=== PATIENT | male | born 1950 | race Caucasian/White ===

== ENCOUNTER → 2017-07-08 10:12 | Outpatient (CLI) | payer MEDICARE, SELFPAY ==
[2017-07-08 13:11] LABS: T4 Free Direct 0.98 ng/dL (0.76-1.46); Thyroid Stim Hormone (TSH) 6.73 uIU/mL (0.358-3.74)
== END ==
PROVIDERS: Family Provider Family Medicine; PCP Family Medicine; Visit Provider Family Medicine
DX: E03.9 Hypothyroidism, unspecified (principal); E78.5 Hyperlipidemia, unspecified
CPT/HCPCS: 36415; 84439; 84443

== ENCOUNTER → 2018-03-28 08:34 | Outpatient (CLI) | payer MEDICARE, SELFPAY ==
[2018-03-28 13:07] LABS: Cholesterol 199 mg/dL (200); Glucose 96 mg/dL (74-106); High Density Lipoprotein 42 mg/dL; PSA,Total - Annual Screen 2.19 ng/mL (0.00-4.00); T4 Free Direct 0.99 ng/dL (0.76-1.46); Thyroid Stim Hormone (TSH) 3.53 uIU/mL (0.358-3.74); Triglycerides 117 mg/dL; Very Low Density Lipoprotein 23 mg/dL (5-40)
== END ==
PROVIDERS: Family Provider Family Medicine; PCP Family Medicine; Visit Provider Family Medicine
DX: E03.9 Hypothyroidism, unspecified (principal); E78.5 Hyperlipidemia, unspecified; Z12.5 Encounter for screening for malignant neoplasm of prostate
CPT/HCPCS: 36415; 80061; 82947; 84153; 84439; 84443; G0103

== ENCOUNTER → 2018-05-05 10:02 | Outpatient (CLI) | payer MEDICARE, SELFPAY ==
[2018-05-05 12:35] LABS: T4 Free Direct 1.01 ng/dL (0.76-1.46); Thyroid Stim Hormone (TSH) 3.53 uIU/mL (0.358-3.74)
== END ==
PROVIDERS: Family Provider Family Medicine; PCP Family Medicine; Visit Provider Family Medicine
DX: E03.9 Hypothyroidism, unspecified (principal)
CPT/HCPCS: 36415; 84439; 84443

== ENCOUNTER 2019-01-23 13:40 | Emergency (ER) | payer MEDICARE, SELFPAY ==
[2019-01-23 13:41] VITALS: BP 149/74; PULSE 89; RESP 16; TEMP 36.5; O2SAT 97; BMI 26.5
[2019-01-23] MEDS: Diphth,Pertuss(Acell),Tet Vac 0.5 ML Vial IM (14:04)
--- NOTE | 2019-01-23 14:05 | RAD_ITS ---
STUDY: X-RAY - LEFT HAND REASON FOR EXAM: Male, 68 years old. Laceration following injury of the index finger. TECHNIQUE: 3 view(s) of the hand. COMPARISON: None. FINDINGS: Normal radiocarpal articulation. Normal distal radioulnar joint. Normal visualized carpal bones. Normal carpal articulations Normal carpometacarpal articulation of the thumb. Normal second through fifth carpometacarpal joints. Normal metacarpi. Normal metacarpophalangeal joint of the thumb. Normal interphalangeal joint of the thumb. Normal proximal and distal phalanges of the thumb. Normal metacarpophalangeal joints of the second through fifth fingers. Normal proximal and distal interphalangeal joints of the second through fifth fingers. Normal phalanges of the second through fifth fingers. Soft tissue laceration overlying the index finger. No bony abnormality is seen. No radiopaque foreign body. RAD/Hand Min 3 Views IMPRESSION: Soft tissue laceration overlying the index finger. Electronically Signed: Patrick Montanez, at 14:41 EDT , Service support ,
--- NOTE | 2019-01-23 15:27 | ED.DCSUM_ITS ---
- ER Visit Summary Date of Service: 01/23/19 Chief Complaint: Laceration History of Present Illness: The patient is a 68 M with a laceration to his left index finger. He is right-hand dominant. This occurred when he was carrying a flowerpot. He fell and cut the finger. He hyperextended the finger and noticed a deformity at his PIP joint. Physical Examination: 3 cm laceration over his left dorsal PIP joint of the index finger. There appears to be a extensor tendon injury and I am concerned for joint disruption Test Results: X-rays negative for fracture or air. Emergency Department Course and Treatment: Tetanus updated. Wound was anesthetized with a digital block. Wound was irrigated with saline and [place]. Closed with simple interrupted sutures. Patient was discussed with Dr. Brooks and will follow-up in the office tomorrow at 8 AM. He was told to be n.p.o. after midnight. He was treated with doxycycline and Percocet. Treatment Plan: As above Disposition: Discharge Impression: 1. Left index finger laceration 3 cm 2. Extensor tendon injury This note was generated with [employer] dictation software. It may contain incorrect words, spelling, and punctuation that were not noted in review of the chart prior to signing ED Disposition - Plan for ED Patient: Referrals: Justino Schultz MD [Primary Care Provider] -
--- NOTE | 2019-01-23 15:30 | ED.DEP ---
ED Disposition - Plan for ED Patient: Instructions: LACERATION, Tendon Prescriptions: Doxycycline 100 mg PO BID #20 cap Prescription Printed Oxycodone HCl/Acetaminophen [Percocet 5/325] 1 tab PO Q6H PRN PRN 3 Days #12 tab PRN Reason: Pain Prescription Printed Referrals: José Luis Brooks MD [STAFF PHYSICIAN] - Additional Instructions: Go to Dr. Workman office tomorrow at 8am (Tue) Nothing to eat or drink after midnight
[2019-01-23 15:47] VITALS: BP 131/77; PULSE 89; RESP 15; O2SAT 98
--- NOTE | 2019-01-23 15:47 | ED.RN ---
PT GIVEN WRITTEN AND VERBAL DISCHARGE INSTRUCTIONS AND HOME GOING INSTRUCTIONS. PT EDUCATED NOT TO DRIVE WHEN TAKING NARCOTIC MEDICATION. PT AMBULATES OUT OF DEPT WITH .
== END 2019-01-23 15:48 | disposition home or self-care (01) ==
LOC: ED 14:17
PROVIDERS: Emergency Provider Emergency Medicine; Family Provider Family Medicine; PCP Family Medicine
DX: S61.211A Laceration without foreign body of left index finger without damage to nail, initial encounter (principal); S66.301A Unspecified injury of extensor muscle, fascia and tendon of left index finger at wrist and hand level, initial encounter; W19.XXXA Unspecified fall, initial encounter; W45.8XXA Other foreign body or object entering through skin, initial encounter; Y93.89 Activity, other specified; E03.9 Hypothyroidism, unspecified; Z79.899 Other long term (current) drug therapy
CPT/HCPCS: 12002; 73130; 90471; 90715; 99285

== ENCOUNTER 2019-01-24 10:30 | Day surgery (SDC) | payer MEDICARE, SELFPAY ==
[2019-01-23 13:41] VITALS: BMI 26.5
[2019-01-24 08:23] VITALS: BMI 26.5
[2019-01-24 10:53] VITALS: BP 133/75; PULSE 73; RESP 16; TEMP 36.9; O2SAT 100; BMI 28.3
[2019-01-24] MEDS: Lactated Ringers 1,000 ML 75 ML IV (11:07)
--- NOTE | 2019-01-24 12:53 | HP.PCM_ITS ---
History and Physical Date of Admission: 01/24/19 Allergies No Known Allergies Allergy (Verified 01/24/19 09:15) Medications Aspirin [Aspir 81] 81 mg PO DAILY 01/23/19 [History Confirmed 01/24/19] Doxycycline 100 mg PO BID #20 cap 01/23/19 [Rx Confirmed 01/24/19] Levothyroxine Sodium 88 mcg PO DAILY 01/23/19 [History Confirmed 01/24/19] Oxycodone HCl/Acetaminophen [Percocet 5/325] 1 tab PO Q6H PRN PRN 3 Days #12 tab 01/23/19 [Rx Confirmed 01/24/19] PFSH Medical History Hearing problem of both ears (Acute) Neuropathy (Acute) Seasonal allergies (Acute) Thyroid disease (Acute) Family History Father Angina at rest Heart disease Mother Hypertension Thyroid disorder Grandmother Diabetes Social History (Updated 01/24/19 @ 10:26 by José Luis Brooks MD) Smoking Status: Never smoker alcohol intake: never substance use type: does not use additional social history: DOES USE BABY ASPIRIN DOES NOT USE IBUPROFEN HPI evaluation extensor tendon injury left index finger at PIP joint (zone 3): Details: HISTORY OF PRESENT ILLNESS 68 year old man presents with an injury to his left index finger on the dorsum over the PIP joint when he was carrying a ceramic flower pot and fell and sustained this laceration. This accident occurred yesterday 01/23/19. Patient is right hand dominant. Bleeding was controlled at the scene with compression. He went to the ED. X-ray revealed no fracture. The wound was cleansed and suture repaired. There was a question of joint involvement at the time of the suture repair. Patient states the finger was initially flexed at the PIP joint when he went to the ED. After the suture repair the finger was splinted. He was discharged on Doxycycline and Percocet. Patient denies fever. He presents today for further evaluation and treatment. REVIEW OF SYSTEMS General - Denies fever, fatigue, and weight loss. Eyes - Denies cataracts and glaucoma. ENT - Denies nasal congestion and sore throat. Endocrine - Denies excessive thirst and urination. Has thyroid disease. Skin - Denies suspicious lesions and skin cancer. Musculoskeletal - Denies joint pain, joint stiffness, weakness of muscles and joints, back pain, and arthritis. Has laceration left index finger on dorsum over PIP joint (zone 3). Neuro - Denies headaches. Cardiovascular - Denies chest pain, fatigue, and shortness of breath with exertion. Psych - Denies anxiety and depression. Respiratory - Denies chronic cough and shortness of breath. Gastrointestinal - Denies nausea, vomiting, diarrhea, and constipation. Hematologic - Denies abnormal bruising and bleeding. Genitourinary - Denies hematuria and urinary frequency. PHYSICAL EXAMINATION General - Alert and Oriented. HEENT - PERRL. EOMI. Throat is clear. Neck - Supple and nontender. No cervical adenopathy. Lungs - Clear to auscultation. Heart - Regular rate and rhythm. Abdomen - Soft and nondistended. Extremities - FROM right upper extremity. Patient is right hand dominant. No axillary adenopathy. Radial pulses are palpable. Fingers are warm with good capillary refill. On the dorsum left index finger over the PIP joint is a L- shaped laceration with horizontal component over the PIP joint and the longitudinal component extending proximally and radially. Measures 3 cm. There is difficulty in extending the left index finger at the PIP joint. Mild swelling seen. No sensory deficits noted. Neuro - CN II-XII grossly intact. Psych - Normal mood and affect. ASSESSMENT 1. 3 cm L-shaped laceration dorsum left index finger over the PIP joint (zone 3) with extensor tendon injury. 2. Possible PIP joint involvement. 3. Early Boutonniere deformity left index finger. PLAN X-ray reviewed. No fracture seen. No foreign body seen. Patient has a laceration over PIP joint left index finger (zone 3) with extensor tendon injury (Boutonniere). Recommend operative exploration of the injury and repair of the extensor tendon. There was a question of joint involvement in the ED. If so will irrigate and proceed with closure with an arthroplasty. May need exposure with extension of the laceration in a zig zag fashion in a proximal and distal direction. Surgery will be done under [place] [facility] anesthesia and tourniquet control on an outpatient basis. Will proceed with the surgery today to evaluate the joint. Postop will have a splint. Will set him up with OT for a silastic splint and after healing, proceed with range of motion exercises, strengthening, and edema management. Sutures will be removed in 2-3 weeks. Patient was informed of the risks and complications of the procedure including alternatives to surgery. These were discussed with the patient personally. Patient voices understanding and wishes to proceed. Some of the risks and complications were included in a form from the [employer]. Some of the risks and complications that were discussed included but were not inclusive of failure to diagnose including symptom relief, pain, infection, numbness, stiffness, loss of digit, RSD (CRPS), need for further surgery, contracture, and wound healing problems.
[2019-01-24] MEDS: Cefazolin 2 GM in 0.9% Normal Saline 100 ML IV (14:09)
[2019-01-24] MEDS: Mupirocin Ointment 22gm Tube 1 APPLIC (15:00)
[2019-01-24 15:50] VITALS: BP 133/75; BP 138/76; PULSE 80; RESP 16; TEMP 36.4; O2SAT 94
[2019-01-24 16:00] VITALS: BP 124/67; BP 133/75; PULSE 75; RESP 16; O2SAT 94
[2019-01-24 16:15] VITALS: BP 133/75; BP 134/82; PULSE 75; RESP 16; O2SAT 93
[2019-01-24 16:31] VITALS: BP 129/82; BP 133/75; PULSE 77; RESP 16; TEMP 36.8; O2SAT 96
--- NOTE | 2019-01-24 17:00 | DCINST_ITS ---
You will use the following diet at home:: No restrictions Discharge Activity: May Not Drive, May Shower - place plastic bag over left hand when showering. May shower in (days): 1 - wear plastic bag over left hand when showering. May resume sexual activity in: No Restrictions Weight Bearing Status: Weight bearing as tolerated Lifting Restrictions: no lifting with left hand. Call your doctor if your incision/area has: Continuous Slow Oozing, Sudden Increased Bleeding, Increased Pain/ Swelling, Increased Redness, Foul Smelling Discharge, Swelling at the incision site Call your doctor if you observe: Fever of 101 or Higher, Coldness, Increased Pain, Shortness of breath, Chest pain, Calf discomfort, Uncontrolled pain Change Dressing in (Days):: 7 - will change dressing in office. Cleanse incision/area with: - - wear plastic bag over left hand when showering. Additional Instructions: Patient has Doxycycline at home that he will continue postoperatively. Allergies/Adverse Reactions: Allergies No Known Allergies Allergy (Verified 01/24/19 10:41) Medications to take at Discharge Doxycycline 100 mg PO BID #20 cap 01/23/19 Levothyroxine Sodium 88 mcg PO DAILY 01/23/19 Oxycodone HCl/Acetaminophen [Percocet 5-325] 1 tab PO Q6H PRN PRN 3 Days #12 tab 01/23/19 HYDROmorphone tablet [Dilaudid] 2 mg PO Q4H PRN PRN 7 Days #40 tab 01/24/19 The following prescriptions were given: HYDROmorphone tablet [Dilaudid] 2 mg PO Q4H PRN PRN 7 Days #40 tab PRN Reason: Pain Prescription Printed Primary Care Physician: Justino Schultz MD [Primary Care Provider] - Test Results: Test results from this visit will be discussed in further detail at your follow- up appointment, if applicable. Please Follow Up With: José Luis Brooks MD When: one week. call [phone] for appt. Proposed Discharge Date: 01/24/19
[2019-01-24 17:38] VITALS: BP 133/75; BP 137/75; PULSE 86; RESP 16; TEMP 37; O2SAT 98
--- NOTE | 2019-01-24 18:05 | PCM.OPRPT ---
Report of Operation Date of Procedure: 01/24/19 Pre-Operative Diagnosis: 1. 3 cm L-shaped laceration dorsum left index finger over the PIP joint (zone 3) with extensor tendon injury. 2. Possible PIP joint involvement. 3. Early Boutonniere deformity left index finger. Post-Operative Diagnosis: 1. 3 cm L-shaped laceration dorsum left index finger over the PIP joint (zone 3) with extensor tendon injury. 2. Laceration PIP joint left index finger. 3. Early Boutonniere deformity left index finger. Surgery/Procedure Performed:: 1. Repair extensor tendon laceration dorsum left index finger at PIP joint (zone 3). 2. Arthroplasty PIP joint left index finger. Description of Surgical Findings:: 68 year old man presents with an injury to his left index finger on the dorsum over the PIP joint when he was carrying a ceramic flower pot and fell and sustained this laceration. This accident occurred yesterday 01/23/19. Patient is right hand dominant. Bleeding was controlled at the scene with compression. He went to the ED. X-ray revealed no fracture. The wound was cleansed and suture repaired. There was a question of joint involvement at the time of the suture repair. Patient states the finger was initially flexed at the PIP joint when he went to the ED. After the suture repair the finger was splinted. He was discharged on Doxycycline and Percocet. Patient denies fever. Patient was informed of the risks and complications of the procedure including alternatives to surgery. These were discussed with the patient personally. Patient voices understanding and wishes to proceed. Some of the risks and complications were included in a form from the [employer]. Some of the risks and complications that were discussed included but were not inclusive of failure to diagnose including symptom relief, pain, infection, numbness, stiffness, loss of digit, RSD (CRPS), need for further surgery, contracture, and wound healing problems. Total tourniquet time - 57 minutes. candy feeder: None Type of Anesthesia:: General Specimen's removed: Soft tissue left index finger to Microbiology. Drains: None. Estimated Blood Loss (mL): 5 ml. Description of Procedure: Patient was taken to OR in supine position and was placed under general anesthesia. The left hand was prepped and draped in the usual fashion. SCD's were placed for DVT prophylaxis. Perioperative antibiotics were given intravenously. Using xylocaine with epinephrine, a digital metacarpal block was infiltrated for postoperative pain relief. I elevated the left hand and wrapped an Esmarch bandage as the tourniquet was elevated to 250 mmHg. Under loupe magnification, I removed the sutures placed in the ED. The laceration went through the extensor tendon and the underlying joint capsule. The underlying joint and articular surface was exposed. The lateral bands appeared intact. I extended the laceration in a proximal and distal direction to get better exposure. The skin flaps were elevated at the level of the tendon. The flaps were retracted back with 5-0 Nylon suture. The wound and the joint was irrigated with saline. Some of the surrounding soft tissue was debrided and sent to Microbiology for culture. I then repaired the joint capsule with an arthroplasty using 3-0 Vicryl figure of eight interrupted sutures. I repaired the extensor tendon laceration with 4-0 Nylon figure of eight interrupted sutures. At the completion of the repair the finger was stable and straight. The wound was irrigated with saline. The tourniquet was released after 57 minutes. Hemostasis obtained with gentle pressure and elevation and electrocautery. The skin flaps were then approximated with 5-0 Nylon simple interrupted sutures and vertical mattress interrupted sutures. Antibiotic ointment was applied to the suture line followed by Xeroform gauze and 2x2 gauze and followed by a 2 inch Lindsay wrap. A volar plaster splint was then applied in a position of function (wrist slightly dorsiflexed, MP joints slightly flexed, and IP joints extended) followed by a compression bhupinder wrap. Patient tolerated the procedure well and was sent to PACU in satisfactory condition. Patient will be sent home on antibiotics and pain medication. Patient will followup in a week for a wound check and for discussion of the microbiology report. A positive culture will necessitate antibiotic therapy. The sutures will be removed in 2-3 weeks. Initially he will place a plastic bag over his bhupinder wrap when showering. He will keep his left hand elevated with no lifting. Will make an appointment with OT for a silastic splint, and after healing, range of motion exercises, strengthening, and edema management. Grafts/Implants Used: None. - Complications None. - Admit VTE Documentation VTE Present on Admission: No VTE Mechan Device Prophylaxis: SCD's VTE Pharm Prophylaxis ordered?: No Code Visit Surgery Charges CPT - 72729 ICD-10 - S66.321A, M20.022, S69.92xA 47286 S69.92xA, S66.321A, M20.022
== END 2019-01-24 17:57 | disposition home or self-care (01) ==
LOC: SDC 10:31 → AC 10:32
PROVIDERS: Family Provider Family Medicine; PCP Family Medicine; Referring Provider Surgery; Visit Provider Surgery
PROC: (CPT 26418; principal; 2019-01-24 12:35)
DX: S66.321A Laceration of extensor muscle, fascia and tendon of left index finger at wrist and hand level, initial encounter (principal); S63.631A Sprain of interphalangeal joint of left index finger, initial encounter; M20.022 Boutonniere deformity of left finger(s); W19.XXXA Unspecified fall, initial encounter; Y93.89 Activity, other specified; E06.9 Thyroiditis, unspecified; Z79.82 Long term (current) use of aspirin; Z79.899 Other long term (current) drug therapy
CPT/HCPCS: 26418; 26535; 87070; 87075; 87077; 87102; 87176; 87205; 87206; J7120; J2405

== ENCOUNTER 2019-03-27 11:30 | Outpatient (RCR) | payer MEDICARE, SELFPAY ==
[2019-01-31 14:48] VITALS: BMI 28.3
[2019-02-07 11:03] VITALS: BMI 28.3
--- NOTE | 2019-02-09 12:07 | HP.OTEVAL ---
Patient's Visit Information BHARGAVI OSMAN is a 68 year old M, referred to Occupational Therapy by José Luis Brooks MD, with a diagnosis of extensor tendon laceration left IF zone 3. Date of Evaluation: 02/07/19 Occupational Therapist: Vanessa Paige, EVELIOR/Jovanny, CHT - Subjective Subjective: This 68 year old male was seen following a ext. tendon repair zone 3 of left IF. Pt had a fall on 01/23/19 suffered a left IF laceration. underwent sx on 01/24/19 PIP joint (zone 3) with extensor tendon repair demo with Early Boutonniere deformity left index finger, Arthroplasty PIP joint left index finger. pt is currently limited with use of left UE for ADLs and IADLs and is in need of cusotm orthosis to ensure pts recovers to PLOF. - ROM ROM Comments: right PIP ROM WNL. left NT. Left DIP sight Hyper-extension +10* - Strength Learning Manager: right 100# left NT Lateral Pinch: right 18# left NT Tripod Pinch: right 17# left NT - Edema PIP: right 6.5 left 6.8 - Sensation Sensation Comments: denies - Quick DASH-Disab of Arm,Shoulder& Hand Quick DASH Score: 70.4525 - Goals Comment: extensor tendon repair zone 3 Goal:Daily scar massage when approriate: Yes Goal:ROM equal to unaffected hand: Yes Goal:Learning Manager/Pinch strength at least 75% of unaffected hand: Yes Goal:PIP Circumferences equal to unaffected hand: Yes Goal:Full use of affected hand in daily activities including: Yes Goal:Improvement in sensation documented by [place]: Yes - Rehabilitation General Assessment: laceration dorsum left index finger over the PIP joint (zone 3) with extensor tendon injury. 2. Laceration PIP joint left index finger. 3. Early Boutonniere deformity left index finger. Surgery/Procedure Performed:: 1. Repair extensor tendon laceration dorsum left index finger at PIP joint (zone 3). 2. Arthroplasty PIP joint left index finger. Pt had sx repair on 01/24/19 pt demo need for skilled OT services 1x week for 8 weeks to provide custom fabrication of orthosis for zone 3 extensor tendon repair orthosis and cont with pts recover to return pts ROM, strengthen . pt was ed.on protocol given handout and demo understanding and agree to POC. Rehabilitation Potential: Good - Anticipated Interventions Anticipated Interventions: A/AAROM/PROM, Strengthening, Edema Control, Scar Care, Triggerpoint Release, Wound Care, Modalities, Orthoses, Joint Protection/Energy Conservation - Visit Plan Frequency: 1-2x /Week Duration: 2 Months TEXT: Thank you for the opportunity to evaluate your patient. For Medicare and Medicare HMO plans, please review the plan of care and approve it. It will need to be FAXED BACK to us at [phone] for Medicare purposes. Please let me know if there are questions or concerns regarding this plan of care. Physician Signature: Date:
--- NOTE | 2019-07-02 16:24 | HP.OT.NRP ---
HP - Discharge Summary - Patient Information BHARGAVI OSMAN was seen in my office for initial evaluation on 02/07/19. The following Plan of Care was established for this patient: Initial Frequency: 1-2x /Week Initial Duration: 2 Months Plan: allow pt to cont on HEP for 2 weeks - Anticipated Interventions Anticipated Interventions: A/AAROM/PROM, Strengthening, Edema Control, Scar Care, Triggerpoint Release, Wound Care, Modalities, Orthoses, Joint Protection/Energy Conservation This patient was last seen in our office 03/27/19. Pertinent comments regarding their Occupational therapy will appear below: pt was seen for 8 OT visits. Pt was making good gains with ROM. Pt has not scheduled any further apts and is D/C due to time lapse in care. At this point I will be discontinuing this patient from occupational therapy. I would be happy to see this patient again in the future if found appropriate by the physician. Thank you! Vanessa Paige, OTR/L, CHT
== END 2019-03-27 19:00 | disposition home or self-care (01) ==
LOC: OT 11:30
PROVIDERS: Family Provider Family Medicine; PCP Family Medicine; Referring Provider Surgery; Visit Provider Surgery
DX: S66.321D Laceration of extensor muscle, fascia and tendon of left index finger at wrist and hand level, subsequent encounter (principal); M20.022 Boutonniere deformity of left finger(s); S69.92XD Unspecified injury of left wrist, hand and finger(s), subsequent encounter
CPT/HCPCS: 97110; 97140; 97166; 97530; 97763

== ENCOUNTER → 2019-04-16 15:54 | Outpatient (CLI) | payer MEDICARE, SELFPAY ==
[2019-04-16 15:35] VITALS: BMI 28.3
[2019-04-16 18:40] LABS: AST(SGOT) 26 U/L (15-37); Alanine Aminotransfer ALT/SGPT 31 U/L (16-61); Albumin, Serum 4.1 g/dL (3.2-5.0); Alkaline Phosphatase 71 U/L (45-117); Anion Gap 5 (5-15); BUN 16 mg/dL (7-18); BUN/Creat Ratio 13.9 RATIO (10-20); Calcium,Total 9.6 mg/dL (8.5-10.1); Chloride 105 mmol/L (98-107); Creatinine, Serum 1.15 mg/dL (0.70-1.30); EST Glomerular Filtration Rate 67 mL/min (>60); Est Glom Filt Rate - Afr Amer 81 mL/min (>60); Glucose 96 mg/dL (74-106); Potassium 4.5 mmol/L (3.5-5.1); Protein, Total 8.1 g/dL (6.4-8.2); Sodium Level 138 mmol/L (136-145)
== END ==
PROVIDERS: Family Provider Family Medicine; PCP Family Medicine; Referring Provider Nurse Practitioner Family; Visit Provider Nurse Practitioner Family
DX: M20.022 Boutonniere deformity of left finger(s) (principal); S66.321A Laceration of extensor muscle, fascia and tendon of left index finger at wrist and hand level, initial encounter
CPT/HCPCS: 36415; 80053

== ENCOUNTER → 2019-12-26 09:11 | Outpatient (CLI) | payer MEDICARE, SELFPAY ==
[2019-05-07 11:17] VITALS: BMI 28.3
[2019-12-26 12:49] LABS: Vitamin B12 1424 pg/mL (211-911)
[2019-12-26 13:06] LABS: Anion Gap 3 (5-15); BUN 15 mg/dL (7-18); Calcium,Total 9.2 mg/dL (8.5-10.1); Chloride 105 mmol/L (98-107); Creatinine, Serum 1.15 mg/dL (0.70-1.30); EST Glomerular Filtration Rate 67 mL/min (>60); Est Glom Filt Rate - Afr Amer 81 mL/min (>60); Glucose 106 mg/dL (74-106); PSA,Total - Annual Screen 2.85 ng/mL (0.00-4.00); Potassium 4.6 mmol/L (3.5-5.1); Sodium Level 138 mmol/L (136-145); T4 Free Direct 1.09 ng/dL (0.76-1.46); Thyroid Stim Hormone (TSH) 3.96 uIU/mL (0.358-3.74)
== END ==
PROVIDERS: PCP Family Medicine; Visit Provider Family Medicine
DX: E03.9 Hypothyroidism, unspecified (principal); E78.5 Hyperlipidemia, unspecified; Z12.5 Encounter for screening for malignant neoplasm of prostate
CPT/HCPCS: 36415; 80048; 82607; 84153; 84439; 84443; G0103

== ENCOUNTER → 2019-12-28 14:58 | Outpatient (CLI) | payer MEDICARE, SELFPAY ==
[2019-05-07 11:17] VITALS: BMI 28.3
== END ==
PROVIDERS: PCP Family Medicine; Visit Provider Family Medicine
DX: E03.9 Hypothyroidism, unspecified (principal)

== ENCOUNTER → 2020-02-13 10:02 | Outpatient (CLI) | payer MEDICARE, SELFPAY ==
[2019-05-07 11:17] VITALS: BMI 28.3
[2020-02-13 13:01] LABS: Thyroid Stim Hormone (TSH) 4.45 uIU/mL (0.358-3.74)
== END ==
PROVIDERS: PCP Family Medicine; Visit Provider Family Medicine
DX: E03.9 Hypothyroidism, unspecified (principal)
CPT/HCPCS: 36415; 84443

== ENCOUNTER → 2020-04-04 13:41 | Outpatient (CLI) | payer MEDICARE, SELFPAY ==
[2019-05-07 11:17] VITALS: BMI 28.3
[2020-04-04 16:13] LABS: Thyroid Stim Hormone (TSH) 1.74 uIU/mL (0.358-3.74)
== END ==
PROVIDERS: PCP Family Medicine; Visit Provider Family Medicine
DX: E03.9 Hypothyroidism, unspecified (principal)
CPT/HCPCS: 36415; 84443

== ENCOUNTER → 2022-12-31 | Outpatient (CLI) | payer MEDICARE, SELFPAY ==
[2022-12-31 12:28] LABS: Absolute Lymphocyte Count 1.67 X10^3/uL (0.83-4.51); Absolute Neutrophil Count 5.8 X10^3/uL (2.0-7.7); Basophil# 0.05 X10^3/uL; Basophil% 0.6 % (0-1); Eosinophils% 1.2 % (0-5); Hematocrit 35.2 % (40-54); Lymphocyte # 1.67 X10^3/ul (0.83-4.51); Lymphocyte % 19.8 % (19-41); Mean Corp Hgb Conc 31.3 g/dL (32-36); Mean Corpuscular Hgb 28.7 pg (27.0-32.0); Mean Corpuscular Volume 91.9 fL (80-94); Mean Platelet Vol. 10.7 fl (6.2-12.0); Monocyte# 0.84 X10^3/uL; Monocyte% 9.9 % (0-10); NRBC Flagged by Analyzer 0 % (0-5); Neutrophil # 5.77 X10^3/uL (2.7-7.7); Neutrophil % 68.3 % (47-70); Platelet Count 221 K/mm3 (150-450); RBC Distribution Width CV 12.8 % (11.6-14.6); RBC Distribution Width SD 42.8 fl (35.1-43.9); Red Blood Count 3.83 M/mm3 (4.6-6.2); White Blood Count 8.5 K/mm3 (4.4-11.0)
[2022-12-31 12:55] LABS: Vitamin B12 1365 pg/mL (211-911); Vitamin D,25 Hydroxy 40.6 ng/mL
[2022-12-31 13:23] LABS: ALB/GLOB Ratio 1.1 RATIO (0.9-2.4); AST(SGOT) 15 U/L (15-37); Alanine Aminotransfer ALT/SGPT 19 U/L (16-61); Albumin, Serum 4.1 g/dL (3.2-5.0); Alkaline Phosphatase 58 U/L (45-117); Anion Gap 6 (5-15); BUN 44 mg/dL (7-18); BUN/Creat Ratio 13.8 RATIO (10-20); Calcium,Total 9.3 mg/dL (8.5-10.1); Chloride 111 mmol/L (98-107); Cholesterol 171 mg/dL (200); EST Glomerular Filtration Rate 20 mL/min (>60); Est Glom Filt Rate - Afr Amer 25 mL/min (>60); Ferritin 258 ng/mL (26-388); Globulin 3.6 g/dL (2.2-4.2); Glucose 94 mg/dL (74-106); High Density Lipoprotein 49 mg/dL; Iron 94 ug/dL (65-175); PSA,Total - Annual Screen 4.33 ng/mL (0.00-4.00); Potassium 4.8 mmol/L (3.5-5.1); Protein, Total 7.7 g/dL (6.4-8.2); Sodium Level 143 mmol/L (136-145); T4 Free Direct 1.33 ng/dL (0.76-1.46); Thyroid Stim Hormone (TSH) 1.32 uIU/mL (0.358-3.74); Triglycerides 70 mg/dL; Very Low Density Lipoprotein 14 mg/dL (5-40)
== END | disposition home or self-care (01) ==
LOC: BFHLAB 08:47
PROVIDERS: PCP Nurse Practitioner Family; Referring Provider Nurse Practitioner Family; Visit Provider Nurse Practitioner Family
DX: E03.9 Hypothyroidism, unspecified (principal); E78.5 Hyperlipidemia, unspecified; E55.9 Vitamin D deficiency, unspecified; N40.0 Benign prostatic hyperplasia without lower urinary tract symptoms; E53.8 Deficiency of other specified B group vitamins; I10 Essential (primary) hypertension; D64.9 Anemia, unspecified; Z12.5 Encounter for screening for malignant neoplasm of prostate
CPT/HCPCS: 36415; 80053; 80061; 82306; 82607; 82728; 83540; 84153; 84439; 84443; 85025; G0103

== ENCOUNTER → 2023-01-03 | Outpatient (CLI) | payer MEDICARE, SELFPAY ==
[2023-01-03 15:56] LABS: Anion Gap 6 (5-15); BUN 45 mg/dL (7-18); BUN/Creat Ratio 14.7 RATIO (10-20); Calcium,Total 9.3 mg/dL (8.5-10.1); Chloride 107 mmol/L (98-107); Creatinine, Serum 3.06 mg/dL (0.70-1.30); EST Glomerular Filtration Rate 22 mL/min (>60); Est Glom Filt Rate - Afr Amer 26 mL/min (>60); Glucose 97 mg/dL (74-106); Magnesium 2.4 mg/dL (1.6-2.6); Phosphorus 4.6 mg/dL (2.5-4.9); Potassium 4.8 mmol/L (3.5-5.1); Sodium Level 140 mmol/L (136-145)
[2023-01-03 16:43] LABS: Protein, Urine (Random) < 6.0 mg/dL (<11.9)
[2023-01-04 08:45] LABS: PTHIN 85.1 pg/mL (18.4-80.1)
[2023-01-05 13:08] LABS: PSA, Free 3.02 ng/mL; PSA, Free % 38.2 % (.)
== END | disposition home or self-care (01) ==
LOC: BFHLAB 13:26
PROVIDERS: PCP Nurse Practitioner Family; Referring Provider Nurse Practitioner Family; Visit Provider Nurse Practitioner Family
DX: N28.9 Disorder of kidney and ureter, unspecified (principal); R97.20 Elevated prostate specific antigen [PSA]; D64.9 Anemia, unspecified
CPT/HCPCS: 36415; 80048; 82570; 83735; 83970; 84100; 84153; 84154; 84156

== ENCOUNTER 2023-01-06 12:28 | Outpatient (CLI) | payer MEDICARE, SELFPAY ==
--- NOTE | 2023-01-06 12:36 | US_ITS ---
EXAM: US RETROPERITONEAL COMPLETE, RENAL CLINICAL INDICATION: DECREASED RENAL FUNCTION LABS, ELEVATED PSA TECHNIQUE: Grayscale and color Doppler sonographic evaluation of the retroperitoneum was performed. COMPARISON: No relevant prior studies available. FINDINGS: RIGHT KIDNEY: Severe right hydronephrosis. No shadowing calculus. No perinephric collection is demonstrated. LEFT KIDNEY: Severe left hydronephrosis. No shadowing calculus. No perinephric collection is demonstrated. BLADDER: Urinary bladder is significantly distended measuring 1700 mL. Large residual volume of the urinary bladder measuring 1340 mL. OTHER FINDINGS: Prostate is enlarged measuring 88 mL. US/Kidney and Bladder IMPRESSION: 1. Bilateral hydronephrosis. 2. Urinary bladder distention with significant/severe retention. 3. Prostatomegaly. According to technologist documentation, RN was notified and whitney catheter was placed. Electronically Signed: Declan East (Brooks), at 18:44 EDT ,
== END 2023-01-06 23:59 | disposition home or self-care (01) ==
LOC: US 12:32
PROVIDERS: PCP Nurse Practitioner Family; Referring Provider Nurse Practitioner Family; Visit Provider Nurse Practitioner Family
DX: N28.9 Disorder of kidney and ureter, unspecified (principal); R97.20 Elevated prostate specific antigen [PSA]
CPT/HCPCS: 51702; 76770

== ENCOUNTER 2023-01-06 14:19 | Observation (INO) | payer MEDICARE, SELFPAY ==
[2023-01-06 14:20] VITALS: BP 182/101; PULSE 78; RESP 18; TEMP 36.2; O2SAT 100
--- NOTE | 2023-01-06 17:16 | EX.ED.DYSGE1 ---
HPI History of Present Illness Chief Complaint: Complaint Informant: patient Onset/Context/Timing Onset: Days Context: Gradual Onset Timing: Continuous Quality: Pressure Location: Suprapubic Worsened by: Nothing Relieved by: Nothing Narrative Narrative: Patient presents with urinary retention became worse today. Patient states he was having an outpatient ultrasound of his kidneys when they noted that he had some distention of his bladder. Patient states he also noted some hydroureter and hydronephrosis on the ultrasound. Patient states that they recommended inserting a Reyes catheter. Patient had this done prior to coming to the emergency department. Patient states this did help. Patient also states that he has had some worsening of his kidney function recently along with anemia. Patient and his states that he had to come to the emergency department in order to be discharged with the catheter. [facility] Medical History (Updated 01/06/23 @ 18:[address] Mark Delatorre DO) Hearing problem of both ears Neuropathy Seasonal allergies Thyroid disease Home Medications levothyroxine 88 mcg tablet 88 mcg PO DAILY 01/23/19 [History Last Taken 01/24/19 06:00] fluconazole 200 mg tablet 400 mg (2 x 200 mg) PO DAILY 30 days #60 tabs 03/07/19 [Rx Last Taken Unknown] Allergy/AdvReac Type Severity Reaction Status Date / Time No Known Allergies Allergy Verified 01/06/23 14:20 Family History Father Angina at rest Heart disease Mother Hypertension Thyroid disorder Grandmother Diabetes Social History Smoking Status: Never smoker alcohol intake: never substance use type: does not use additional social history: DOES USE BABY ASPIRIN DOES NOT USE IBUPROFEN ROS ROS ED Constitutional Constitutional ED: Denies chills or fever(s) Eyes Eyes: Denies blurry vision or change in vision ENT ENT ED: Denies rhinorrhea or sore throat Cardiovascular Cardiovascular: Denies chest pain or palpitations Respiratory/Chest Respiratory/Chest: Denies cough or dyspnea Gastrointestinal Gastrointestinal: Denies nausea or vomiting Genitourinary Genitourinary ED: Reports dysuria and hematuria Musculoskeletal Musculoskeletal: Denies back pain or neck pain Integumentary Denies abscess or rash Neurologic Neurologic: Denies headache(s) or weakness Allergic/Immunologic Allergic/Immunologic ED: Denies mouth swelling or urticaria EXAM Physical Exam Const Vital Signs: 01/06/23 14:20 Temperature 97.2 F L Temperature Source Temporal Pulse Rate 78 Respiratory Rate 18 Blood Pressure 182/101 H Blood Pressure Mean 128 Pulse Ox 100 Oxygen Delivery Method Room Air Positive well nourished and well developed General Appearance ED: well developed and NAD HEENT Reports moist mucous membranes Neck supple and no JVD Resp normal respiratory effort and clear to auscultation bilaterally Cardio regular rate and regular rhythm GI non-tender, non-distended and no masses Auscultation: normoactive bowel sounds Palpation: soft Neuro oriented x3, CN's II-XII intact bilaterally and no sensory deficits noted Sensorium / Orientation: alert Motor Exam: strength 5/5 throughout Psych mental status grossly normal MDM MDM MDM Narrative Medical decision making narrative: Differential diagnosis includes urinary tract infection, hemorrhagic cystitis, BPH, acute kidney injury, and electrolyte abnormality. Urinalysis will be ordered to assess for urinary tract infection and hematuria. CBC will be obtained to assess for anemia and leukocytosis. Basic metabolic profile will be obtained to assess for electrolyte abnormality and renal function. History & Record Review Discussion w/independent historian: Patient and Family Additional record(s) reviewed:: Prior labs Lab Data Attestation: I reviewed the patient's lab results. Lab results narrative: CBC was reviewed. There is a mild leukocytosis of 11.6. There is a stable anemia with a hemoglobin of 11.8 and hematocrit 36.4. Basic metabolic profile was reviewed. BUN was 45 and creatinine was 3.53. These are similar to previous results over the past 3 days but are increased compared to previous results 3 years ago. Urinalysis was reviewed. Leukocyte esterase was 100 with 10-25 white blood cells. Occult blood was 250 with greater than 100 red blood cells. Labs: Laboratory Results - last 24 hr 01/06/23 17:15 WBC 11.6 H RBC 4.08 L Hgb 11.8 L Hct 36.4 L MCV 89.2 MCH 28.9 MCHC 32.4 RDW Std Deviation 41.1 RDW Coeff of Raf 12.6 Plt Count 235 MPV 10.1 Immature Gran % (Auto) 0.500 Neut % (Auto) 75.5 H Lymph % (Auto) 14.8 L [place] % (Auto) 8.4 Eos % (Auto) 0.5 Baso % (Auto) 0.3 Absolute Neuts (auto) 8.7 H Absolute Lymphs (auto) 1.71 Nucleated RBC % 0 Sodium 140 Potassium 4.5 Chloride 108 H Carbon Dioxide 26.0 Anion Gap 6 BUN 45 H Creatinine 3.53 H Est GFR (MDRD) Af Amer 22 L Est GFR (MDRD) Non-Af 18 L BUN/Creatinine Ratio 12.7 Glucose 115 H Calcium 10.2 H Urine Color Red Urine Clarity Cloudy Urine pH 7.0 Ur Specific [place] 1.010 Urine Protein 500 H Urine Glucose (UA) Normal Urine Ketones 5 H Urine Occult Blood 250 H Urine Nitrite Negative Urine Bilirubin Negative Urine Urobilinogen Normal Ur Leukocyte Esterase 100 H Urine RBC > 100 SEEN Urine WBC 10-25 SEEN Ur Squamous Epith Cells 0 SEEN Urine Bacteria RARE Urine Mucus 0 SEEN Management Discussion w/another healthcare provider: Hospitalist Additional Tests and Interventions Additional Tests or Interventions: Urine culture was obtained. Treatment and Re-Evaluation :: Patient was advised of his findings. Patient was advised of the need for hospitalization. Patient is agreeable with this. Patient was started on Rocephin. Case was discussed with the hospitalist. We will admit the patient to his service. Patient understood and was agreeable with the plan. All questions were answered. Discharge Plan Triage Chief Complaint: Complaint ED Provider: Mark Delatorre Dx/Rx/DC Orders Clinical Impression: Acute kidney injury, Hematuria Prescriptions: No Action levothyroxine 88 MCG tablet 88 mcg PO DAILY Patient Comments: TAKE 1 TABLET BY MOUTH EVERY DAY fluconazole 200 mg tablet 400 mg PO DAILY 30 Days Qty: 60 1RF Primary Care Provider: Camille Mata Referrals: Camille Mata, [employer] [Primary Care Provider] - Disposition Disposition: Acute Care [facility]
[2023-01-06 17:35] LABS: Mucous, Urine 0 SEEN /hpf (<or=2+); Squamous Epithelial Cells - UA 0 SEEN /hpf (0-5)
[2023-01-06 17:40] LABS: Absolute Lymphocyte Count 1.71 X10^3/uL (0.83-4.51); Absolute Neutrophil Count 8.7 X10^3/uL (2.0-7.7); Basophil# 0.04 X10^3/uL; Basophil% 0.3 % (0-1); Eosinophil# 0.06 X10^3/uL; Eosinophils% 0.5 % (0-5); Hematocrit 36.4 % (40-54); Hemoglobin 11.8 g/dL (13.0-16.5); Lymphocyte # 1.71 X10^3/ul (0.83-4.51); Lymphocyte % 14.8 % (19-41); Mean Corp Hgb Conc 32.4 g/dL (32-36); Mean Corpuscular Hgb 28.9 pg (27.0-32.0); Mean Corpuscular Volume 89.2 fL (80-94); Mean Platelet Vol. 10.1 fl (6.2-12.0); Monocyte# 0.97 X10^3/uL; Monocyte% 8.4 % (0-10); NRBC Flagged by Analyzer 0 % (0-5); Neutrophil # 8.74 X10^3/uL (2.7-7.7); Neutrophil % 75.5 % (47-70); Platelet Count 235 K/mm3 (150-450); RBC Distribution Width CV 12.6 % (11.6-14.6); RBC Distribution Width SD 41.1 fl (35.1-43.9); Red Blood Count 4.08 M/mm3 (4.6-6.2); White Blood Count 11.6 K/mm3 (4.4-11.0)
[2023-01-06 17:45] LABS: Color, Urine Red (Yellow); Glucose, Dipstick Normal (Normal); Ketone-Dipstick 5 mg/dl (Negative); Leukocyte Esterase-Dipstick 100 /ul (Negative); Nitrite-Dipstick Negative (Negative); Occult Blood-Urine 250 /ul (Negative); Protein-Dipstick 500 mg/dl (Negative); Urine Bilirubin Dipstick Negative (Negative); Urine Clarity Cloudy (Clear); Urine Urobilinogen Normal (Normal)
[2023-01-06 17:56] LABS: Anion Gap 6 (5-15); BUN 45 mg/dL (7-18); BUN/Creat Ratio 12.7 RATIO (10-20); Calcium,Total 10.2 mg/dL (8.5-10.1); Chloride 108 mmol/L (98-107); Creatinine, Serum 3.53 mg/dL (0.70-1.30); EST Glomerular Filtration Rate 18 mL/min (>60); Est Glom Filt Rate - Afr Amer 22 mL/min (>60); Glucose 115 mg/dL (74-106); Potassium 4.5 mmol/L (3.5-5.1); Sodium Level 140 mmol/L (136-145)
[2023-01-06 18:16] LABS: Bacteria RARE /hpf (None Seen); Red Blood Cells-Urine > 100 SEEN /hpf (0-5); White Blood Cells 10-25 SEEN /hpf (0-5)
--- NOTE | 2023-01-06 18:40 | PCM.HP.STD ---
HPI - General General Date of Admission: 01/06/23 Date of Service: 01/06/23 Chief Complaint: Urinary retention, RUMA HPI Narrative BHARGAVI OSMAN is a 72 M with history of BPH and hypothyroidism who presented to the [facility] ED on 01/06/2023 with urinary retention. Patient seen at bedside, present. Patient sitting comfortably in bed, conversing normally, no acute distress. Has Reyes catheter in place draining clear yellow urine with intermittent blood. Patient had urinary catheter placed earlier today, has never required one before to his knowledge. Initially had pain and discomfort with the catheter, but is now tolerating it well. Patient states that he had BPH diagnosed about 10 to 15 years ago. Has not needed to take medication for this. Was having his PSA monitored regularly and notes that he was consistently in the 2-3 range, but recently was in the 4-5 range and was referred to urology. Had not been able to see urology in the office yet to this point. Patient reports worsening lower abdominal distention for the last few months. States he was still able to urinate without significant issue, but did note that he urinated small amounts of urine more frequently. He denied any significant pain or discomfort with urination. Denied any hematuria. Patient currently denies any fevers or chills. Denies any abdominal pain or discomfort. No other acute concerns. Labs in ED were notable for a mildly elevated white blood cell count of 11.6, creatinine 3.53, BUN 45, otherwise normal electrolytes. Renal ultrasound was completed in the outpatient setting, read is pending. COUNTS INCLUDE 234 BEDS AT THE [facility] Medical History (Updated 01/06/23 @ 22:[address] Magdi March DO) Hearing problem of both ears Neuropathy Seasonal allergies Thyroid disease Home Medications levothyroxine 112 mcg tablet (Synthroid) 112 mcg PO DAILY hypothyroid 01/06/23 [History Last Taken 01/06/23] tamsulosin 0.4 mg capsule 0.4 mg PO QHS retention 01/06/23 [History Last Taken 01/05/23] Allergy/AdvReac Type Severity Reaction Status Date / Time No Known Allergies Allergy Verified 01/06/23 14:20 Family History Father Angina at rest Heart disease Mother Hypertension Thyroid disorder Grandmother Diabetes Social History Smoking Status: Never smoker alcohol intake: never substance use type: does not use additional social history: DOES USE BABY ASPIRIN DOES NOT USE IBUPROFEN ROS Constitutional Constitutional: Denies change in weight, chills, fatigue, fever(s), malaise or weakness Cardiovascular Cardiovascular: Denies chest pain, dyspnea on exertion or lightheadedness Respiratory/Chest Respiratory/Chest: Denies cough Gastrointestinal Gastrointestinal: Denies abdominal pain, constipation or diarrhea Genitourinary Genitourinary: Reports urinary frequency; Denies dysuria or urinary urgency Vital Signs Vital Signs Vital Signs: 01/06/23 14:20 Temperature 97.2 F L Temperature Source Temporal Pulse Rate 78 Respiratory Rate 18 Blood Pressure 182/101 H Blood Pressure Mean 128 Pulse Ox 100 Oxygen Delivery Method Room Air Physical Exam Const alert, oriented x3, no apparent distress, average body habitus, healthy appearing and well nourished Constitutional Narrative: Pleasant male, conversing normally, sitting comfortably in bed, no acute distress. General Appearance: cooperative, comfortable, well kempt and well developed HEENT normocephalic, head/scalp atraumatic, hearing grossly normal bilaterally, nasal mucous membranes and turbinates normal and moist oral mucous membranes Eyes PERRL, EOMs intact bilaterally and conjunctivae normal Neck full ROM, no lymphadenopathy and supple Lymph Lymphatic: no lymphadenopathy noted Chest inspection of chest normal Resp normal respiratory effort, normal air movement, no use of accessory muscles and clear to auscultation bilaterally Cardio regular rate, regular rhythm, no murmurs and peripheral pulses 2+ throughout GI normal to inspection, nondistended, normoactive bowel sounds, soft to palpation, non-tender and non-distended GI Narrative: No suprapubic tenderness noted on palpation. Reyes catheter in place, draining clear yellow urine with intermittent blood. Back/Spine normal ROM Extremity normal to inspection, full ROM and no pedal edema Skin no rashes or lesions noted Psych mental status grossly normal Results Lab / Micro Data 01/06/23 17:15 01/06/23 17:15 Labs: Laboratory Results - last 24 hr 01/06/23 17:15: WBC 11.6 H, RBC 4.08 L, Hgb 11.8 L, Hct 36.4 L, MCV 89.2, MCH 28.9, MCHC 32.4, RDW Std Deviation 41.1, RDW Coeff of Raf 12.6, Plt Count 235, MPV 10.1, Immature Gran % (Auto) 0.500, Neut % (Auto) 75.5 H, Lymph % (Auto) 14.8 L, [place] % (Auto) 8.4, Eos % (Auto) 0.5, Baso % (Auto) 0.3, Absolute Neuts (auto) 8.7 H, Absolute Lymphs (auto) 1.71, Nucleated RBC % 0, Sodium 140, Potassium 4.5, Chloride 108 H, Carbon Dioxide 26.0, Anion Gap 6, BUN 45 H, Creatinine 3.53 H, Est GFR (MDRD) Af Amer 22 L, Est GFR (MDRD) Non-Af 18 L, BUN/Creatinine Ratio 12.7, Glucose 115 H, Calcium 10.2 H, Urine Color Red, Urine Clarity Cloudy, Urine pH 7.0, Ur Specific [place] 1.010, Urine Protein 500 H, Urine Glucose (UA) Normal, Urine Ketones 5 H, Urine Occult Blood 250 H, Urine Nitrite Negative, Urine Bilirubin Negative, Urine Urobilinogen Normal, Ur Leukocyte Esterase 100 H, Urine RBC > 100 SEEN, Urine WBC 10-25 SEEN, Ur Squamous Epith Cells 0 SEEN, Urine Bacteria RARE, Urine Mucus 0 SEEN Assessment & Plan Assessment/Plan (1) Urinary retention: PLAN: Plan Patient is a 72 M with history of BPH and hypothyroidism who presented to the [facility] ED on 01/06/2023 with urinary retention. 1. Urinary retention, known history of BPH Most likely due to worsening BPH versus other prostate pathology causing constriction of the urethra. Patient notably was urinating at home, small amounts of frequent urination. Had outpatient renal and bladder ultrasound done today, and hydroureter and hydronephrosis were noted. Reyes catheter was inserted with significant drainage of urine at that time. ?Urology consulted, appreciate recs. Continue Reyes catheter at this time. Patient notably not on any BPH medications. 2. RUMA Most likely postobstructive RUMA now with likely component of ATN given acute on chronic obstructive pathology. Concern patient may have some degree of CKD secondary to longstanding BPH. Creatinine 3.53 on admit, BUN 45. Creatinine was notably 3.0 to 3.2 last week. Baseline creatinine was around 1-1.1 back in 2020. Renal ultrasound in system, has not been read yet. UA on admission notably showed 500 protein. ?Nephrology consulted, appreciate recs. Urine sodium and protein/creatinine ratio ordered. Monitor BMP and urine output closely. Have concern patient may have postobstructive diuresis, may need to start maintenance IV fluids for fluid replacement. 3. Concern for UTI - Given 1 dose of ceftriaxone in the ED for concern for UTI. On further evaluation, UA shows 100 leukocyte esterase but is otherwise fairly benign. Patient reports no UTI symptoms recently and appears noninfectious from vitals and lab standpoint. We will hold on further antibiotics. 4. Hypothyroidism ? Continue home levothyroxine. 5. Elevated BP readings ? No reported history of hypertension. BPs have been elevated to the 170s to 180s systolic since admission, and patient appears quite comfortable on exam. Will start amlodipine 5 mg daily, IV labetalol as needed for SBP greater than 180. DVT prophylaxis: Heparin subcu CODE STATUS: Full code, verified Expected disposition: Home, 2 to 3 days Total clinical time spent by myself addressing the patient's medical issues, reviewing all the data, and collaborating with patient's care team: 55 minutes. Charges/Coding Visit Charges Inpatient E&M: 54927 Init Hosp L2
[2023-01-06 18:45] VITALS: BP 177/95; PULSE 82; RESP 16; TEMP 37.1; O2SAT 98
[2023-01-06 18:53] VITALS: BMI 25.4
[2023-01-06] MEDS: Ceftriaxone 1 GM/50 ML BAG IV (19:09)
[2023-01-06 20:42] VITALS: BP 171/97
[2023-01-06 21:56] VITALS: BMI 24.6
[2023-01-06 21:57] VITALS: BP 174/98; PULSE 72; RESP 18; TEMP 36.8; O2SAT 98
[2023-01-06] MEDS: amLODIPine 5 MG Tablet PO (23:43)
[2023-01-06] MEDS: hydrOXYzine 10 MG Tablet PO (23:44)
[2023-01-06] MEDS: Heparin Injection (Vial) 5,000 UNIT/ML VIAL 5000 UNIT SC (23:45)
[2023-01-06] MEDS: MELATONIN 10 MG TABLET 5 MG PO (23:45)
[2023-01-07 04:49] VITALS: BP 163/96; PULSE 80; RESP 18; TEMP 36.9; O2SAT 98
[2023-01-07] MEDS: Heparin Injection (Vial) 5,000 UNIT/ML VIAL 5000 UNIT SC ×3 (05:07→21:54)
[2023-01-07] MEDS: Levothyroxine 112 MCG Tablet PO (05:08)
[2023-01-07] MEDS: Acetaminophen 325 MG Tablet 650 MG PO (05:08)
[2023-01-07 05:27] LABS: Anion Gap 6 (5-15); BUN 38 mg/dL (7-18); BUN/Creat Ratio 12.3 RATIO (10-20); Calcium,Total 9.6 mg/dL (8.5-10.1); Chloride 107 mmol/L (98-107); EST Glomerular Filtration Rate 21 mL/min (>60); Est Glom Filt Rate - Afr Amer 26 mL/min (>60); Estimated Creatinine Clearance 22.57 ml/min; Glucose 110 mg/dL (74-106); Potassium 4.4 mmol/L (3.5-5.1); Sodium Level 141 mmol/L (136-145)
[2023-01-07] MEDS: 0.9% Normal Saline 1,000 ML 100 ML IV ×3 (05:29→22:05)
[2023-01-07] MEDS: 0.9% Saline Lock 10 ML Syringe IV (05:29)
[2023-01-07 05:43] LABS: Urine Sodium 85 mmol/L (Not Establ.)
[2023-01-07 06:05] LABS: Protein, Urine (Random) 93.6 mg/dL (<11.9); Protein:Creat Ratio 2802 mg/g CRE (0-200)
--- NOTE | 2023-01-07 08:25 | PN.HOSP_ITS ---
Reason for Visit Reason for Visit: Diagnoses Retention of urine, unspecified (01/06/23) Subjective Subjective Feeling much better today compared to yesterday, did not sleep well and is upset about that and has slight headache, no abdominal pain, no nausea, slight pink in Reyes he reports this was after straining for bowel movement Objective Data Objective Data Vital Signs: Vital Signs Temp Pulse Resp BP Pulse Ox O2 Del Method 98.5 F 80 18 163/96 H 98 Room Air 01/07/23 04:49 01/07/23 04:49 01/07/23 04:49 01/07/23 04:49 01/07/23 04:49 01/07/23 04:49 Oxygen Delivery Method Room Air Weight: 77.8 kg Body Mass Index (BMI) 24.6 Intake & Output: Intake and Output for Last 24 Hours 01/05/23 01/06/23 01/07/23 23:59 23:59 23:59 Intake Total 850 / 850 800 / 800 Output Total 2450 / 2450 850 / 850 Balance -1600 / -1600 -50 / -50 Lab / Micro Data 01/06/23 17:15 01/07/23 05:00 Labs: Laboratory Results - last 24 hr 01/06/23 17:15: WBC 11.6 H, RBC 4.08 L, Hgb 11.8 L, Hct 36.4 L, MCV 89.2, MCH 28.9, MCHC 32.4, RDW Std Deviation 41.1, RDW Coeff of Raf 12.6, Plt Count 235, MPV 10.1, Immature Gran % (Auto) 0.500, Neut % (Auto) 75.5 H, Lymph % (Auto) 14.8 L, [place] % (Auto) 8.4, Eos % (Auto) 0.5, Baso % (Auto) 0.3, Absolute Neuts (auto) 8.7 H, Absolute Lymphs (auto) 1.71, Nucleated RBC % 0, Sodium 140, Pota ssium 4.5, Chloride 108 H, Carbon Dioxide 26.0, Anion Gap 6, BUN 45 H, Creatinine 3.53 H, Est GFR (MDRD) Af Amer 22 L, Est GFR (MDRD) Non-Af 18 L, BUN/Creatinine Ratio 12.7, Glucose 115 H, Calcium 10.2 H, Urine Color Red, Urine Clarity Cloudy, Urine pH 7.0, Ur Specific [place] 1.010, Urine Protein 500 H, Urine Glucose (UA) Normal, Urine Ketones 5 H, Urine Occult Blood 250 H, Urine Nitrite Negative, Urine Bilirubin Negative, Urine Urobilinogen Normal, Ur Leukocyte Esterase 100 H, Urine RBC > 100 SEEN, Urine WBC 10-25 SEEN, Ur Squamous Epith Cells 0 SEEN, Urine Bacteria RARE, Urine Mucus 0 SEEN 01/07/23 05:00: Sodium 141, Potassium 4.4, Chloride 107, Carbon Dioxide 28.0, Anion Gap 6, BUN 38 H, Creatinine 3.10 H, Estim Creat Clear Calc 22.57, Est GFR (MDRD) Af Amer 26 L, Est GFR (MDRD) Non-Af 21 L, BUN/Creatinine Ratio 12.3, Glucose 110 H, Calcium 9.6, U Random Total Protein 93.6 H, Ur Random Sodium 85, Urine Creatinine 33.40, Protein/Creatinin Ratio 2802 H Physical Exam Narrative General: Alert, oriented, no apparent distress HEENT: Atraumatic, normocephalic Eyes: Anicteric, normal conjunctiva, extraocular movements grossly intact Neck: Supple Respiratory: Clear to auscultation bilaterally, normal respiratory effort Cardiovascular: Regular rate and rhythm GI: Soft, nontender, nondistended Extremities: No edema Musculoskeletal: Moving all extremities Neuro: No overt focal neurological deficits Skin: No rashes appreciated Psych: Anxious, perseverative Assessment & Plan Assessment/Plan (1) Urinary retention: PLAN: Plan Patient is a 72 M with history of BPH and hypothyroidism who presented to the [facility] ED on 01/06/2023 with urinary retention. #Urinary retention, known history of BPH Most likely due to worsening BPH versus other prostate pathology causing constriction of the urethra. Patient notably was urinating at home, small amounts of frequent urination. Had outpatient renal and bladder ultrasound done today, and hydroureter and hydronephrosis were noted. Reyes catheter was inserted with significant drainage of urine at that time. ?Urology consulted, appreciate recs. Continue Reyes catheter at this time. Patient notably not on any BPH medications. 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 Concern patient may have some degree of CKD sec ondary to longstanding BPH. Creatinine 3.53 on admit, BUN 45. Creatinine was notably 3.0 to 3.2 last week. Baseline creatinine was around 1-1.1 back in 2020. Renal ultrasound in system, has not been read yet. UA on admission notably showed 500 protein. ?Nephrology consulted, appreciate recs. Urine sodium and protein/creatinine ratio ordered. Monitor BMP and urine output closely. Have concern patient may have postobstructive diuresis, may need to start maintenance IV fluids for fluid replacement. -01/07: Appreciate nephrology recommendations, monitor I's and O's, presently with noted output of 3300 mL. Has had elevated readings since 12/31/2022 most 3.2, up trended to 3.53 on day of presentation and this a.m. 3.10. Suspect this is obstructive given presentation. Continue IVF #Concern for UTI - Given 1 dose of ceftriaxone in the ED for concern for UTI. On further evaluation, UA shows 100 leukocyte esterase but is otherwise fairly benign. Patient reports no UTI symptoms recently and appears noninfectious from vitals and lab standpoint. We will hold on further antibiotics. #Hypothyroidism ? Continue home levothyroxine. -01/07: Had TSH 12/31/2022 that was 1.32, continue current dosing #Elevated BP readings ? No reported history of hypertension. BPs have been elevated to the 170s to 180s systolic since admission, and patient appears quite comfortable on exam. Will start amlodipine 5 mg daily, IV labetalol as needed for SBP greater than 180. -01/07: As amlodipine was just begun, will continue at this time and adjust further as needed moving forward DVT prophylaxis: Heparin subcu CODE STATUS: Full code, verified Expected disposition: Home, 2 to 3 days Total clinical time spent by myself addressing the patient's medical issues, reviewing all the data, and collaborating with patient's care team: 51 minutes. Charges/Coding Visit Charges Inpatient E&M: 53301 Subs Hosp L3
[2023-01-07 09:11] VITALS: BP 163/92; PULSE 77; RESP 16; TEMP 36.4; O2SAT 100
[2023-01-07] MEDS: amLODIPine 5 MG Tablet PO (09:16)
[2023-01-07] MEDS: Ensure Plus High Protein 120 ML LIQUID PO ×2 (09:16→12:02)
--- NOTE | 2023-01-07 09:54 | CON.PCM.RE_ITS ---
Assessment & Plan Assessment/Plan (1) Urinary retention: (2) Hematuria: (3) Acute kidney injury: PLAN: Plan This is a 72-year-old male with past medical history significant for hypothyroidism and BPH who while having renal ultrasound done was found to have distended bladder, Reyes placed and patient developed hematuria therefore sent to the emergency room for evaluation. Found to have a creatinine of 3.53 mg/dL. Patient was started on IV fluids and admitted for further evaluation and treatment. Nephrology consulted for RUMA. Past creatinine trends, December 26, 2019 serum creatinine 1.15 mg/dL. Gap in lab work until 12/31/2022 creatinine 3.20 mg/dL, then on 01/03 serum creatinine 3.06; these labs were per his primary care. Yesterday in the emergency room creatinine 3.53 and today his creatinine has improved to 3.10 mg/dL. There is no acute indication for SENIOR INTERNAL AUDITOR. Renal function improving. No acidemia or hyperkalemia. Volume status acceptable and patient has good urine output. Recommended continue with IV fluids as ordered. Renal ultrasound report is pending. Urology has been consulted. Patient did have a urinalysis which was collected after Reyes was placed therefore is positive for blood. We will need to repeat UA once hematuria resolves. Blood pressures have been elevated in the hospital and patient is now on amlodipine. Further orders forthcoming as hospitalization evolves, thank you for allowing us to participate in the care of Mr. Osman. HPI Consult Data Date of Consult: 01/07/23 HPI Narrative HPI Narrative: BHARGAVI OSMAN, is a 72 M with past medical history significant for hypothyroidism and BPH on tamsulosin who was sent to the emergency room from ultrasound area after patient underwent renal ultrasound, found to have distended bladder, Reyes was placed and patient developed blood in urine. Lab work in the emergency room showed creatinine of 3.5, patient was admitted for further evaluation and treatment. Nephrology consulted for acute kidney injury. Patient reports about a week ago or so he noted a distended abdomen. Patient reports he was able to urinate. He was seen by primary care, labs were ordered and found to have a creatinine of 3.2 mg/dL. Patient was also ordered to have a renal ultrasound. Patient had ultrasound yesterday. Results pending. No recent NSAIDs. No recent nausea, vomiting or diarrhea. Other than distended abdomen patient has no complaints. He denies noting any hematuria at home. Patient reports feeling better today. [facility] Medical History (Updated 01/06/23 @ 22:[address] Magdi March DO) Hearing problem of both ears Neuropathy Seasonal allergies Thyroid disease Home Medications levothyroxine 112 mcg tablet (Synthroid) 112 mcg PO DAILY hypothyroid 01/06/23 [History Last Taken 01/06/23] tamsulosin 0.4 mg capsule 0.4 mg PO QHS retention 01/06/23 [History Last Taken 01/05/23] Allergy/AdvReac Type Severity Reaction Status Date / Time No Known Allergies Allergy Verified 01/06/23 14:20 Family History Father Angina at rest Heart disease Mother Hypertension Thyroid disorder Grandmother Diabetes Social History Smoking Status: Never smoker alcohol intake: never substance use type: does not use additional social history: DOES USE BABY ASPIRIN DOES NOT USE IBUPROFEN ROS ROS Narrative As in HPI past medical history Physical Exam Narrative Alert and oriented x3, no apparent distress S1, S2, RRR Lung sounds clear anteriorly and posteriorly Abdomen soft, nondistended, positive bowel sounds No edema Indwelling Reyes catheter with straw-colored urine in tubing and bag. No blood clots Lab / Micro Data 01/06/23 17:15 01/07/23 05:00 Labs: Laboratory Results - last 24 hr 01/06/23 17:15: WBC 11.6 H, RBC 4.08 L, Hgb 11.8 L, Hct 36.4 L, MCV 89.2, MCH 28.9, MCHC 32.4, RDW Std Deviation 41.1, RDW Coeff of Raf 12.6, Plt Count 235, MPV 10.1, Immature Gran % (Auto) 0.500, Neut % (Auto) 75.5 H, Lymph % (Auto) 14.8 L, [place] % (Auto) 8.4, Eos % (Auto) 0.5, Baso % (Auto) 0.3, Absolute Neuts (auto) 8.7 H, Absolute Lymphs (auto) 1.71, Nucleated RBC % 0, Sodium 140, Potassium 4.5, Chloride 108 H, Carbon Dioxide 26.0, Anion Gap 6, BUN 45 H, Creatinine 3.53 H, Est GFR (MDRD) Af Amer 22 L, Est GFR (MDRD) Non-Af 18 L, BUN/Creatinine Ratio 12.7, Glucose 115 H, Calcium 10.2 H, Urine Color Red, Urine Clarity Cloudy, Urine pH 7.0, Ur Specific [place] 1.010, Urine Protein 500 H, Urine Glucose (UA) Normal, Urine Ketones 5 H, Urine Occult Blood 250 H, Urine Nitrite Negative, Urine Bilirubin Negative, Urine Urobilinogen Normal, Ur Maryse kocyte Esterase 100 H, Urine RBC > 100 SEEN, Urine WBC 10-25 SEEN, Ur Squamous Epith Cells 0 SEEN, Urine Bacteria RARE, Urine Mucus 0 SEEN 01/07/23 05:00: Sodium 141, Potassium 4.4, Chloride 107, Carbon Dioxide 28.0, Anion Gap 6, BUN 38 H, Creatinine 3.10 H, Estim Creat Clear Calc 22.57, Est GFR (MDRD) Af Amer 26 L, Est GFR (MDRD) Non-Af 21 L, BUN/Creatinine Ratio 12.3, Glucose 110 H, Calcium 9.6, U Random Total Protein 93.6 H, Ur Random Sodium 85, Urine Creatinine 33.40, Protein/Creatinin Ratio 2802 H
--- NOTE | 2023-01-07 11:40 | CASEMGMT ---
MARCO ANTONIO ALFARO DC Instructor Industrial Design: Face to Face with patient for initial transition planning/care coordination assessment. MARCO ANTONIO ALFARO introduced self and role at [facility], pt alert, answering questions appropriately, voices understanding, and is agreeable to participating in assessment with at bedside.? Care providers, pharmacy,?and demographics verified. ? Admitting dx: urinary retention PCP: PONCHO Mata Specialists: none Preferred Pharmacy: [facility] Insurance: Aetna [facility] Prescription Benefit:?yes LNOK: Moira Living Arrangements: Pt lives with his in a single story home with 2 steps to enter. Pt states he is independent with ADLs and denies any concerns with steps. Transportation: pt drives and his spouse can assist if needed DME/SNF/HHC: denies any previous ? Plan: Home with the assistance of his and denies any discharge needs. Pt states he is comfortable discharging with the [facility] and caring for it. Citlaly Dennison RN CM
[2023-01-07] MEDS: Polyethylene Glycol 3350 17 GM PACKET PO (12:16)
[2023-01-07 15:33] VITALS: BP 157/82; PULSE 76; RESP 16; TEMP 37.5; O2SAT 100
[2023-01-07 21:45] VITALS: BP 139/75; PULSE 67; RESP 16; TEMP 37.1; O2SAT 99
[2023-01-07] MEDS: MELATONIN 10 MG TABLET 5 MG PO (21:54)
[2023-01-08 02:43] VITALS: BP 139/69; PULSE 74; RESP 18; TEMP 36.9; O2SAT 97
[2023-01-08] MEDS: Heparin Injection (Vial) 5,000 UNIT/ML VIAL 5000 UNIT SC (06:34)
[2023-01-08] MEDS: Levothyroxine 112 MCG Tablet PO (06:34)
[2023-01-08 06:46] LABS: Absolute Lymphocyte Count 1.81 X10^3/uL (0.83-4.51); Absolute Neutrophil Count 6.3 X10^3/uL (2.0-7.7); Basophil# 0.04 X10^3/uL; Basophil% 0.4 % (0-1); Eosinophil# 0.12 X10^3/uL; Eosinophils% 1.3 % (0-5); Hematocrit 34.7 % (40-54); Hemoglobin 11.4 g/dL (13.0-16.5); Lymphocyte # 1.81 X10^3/ul (0.83-4.51); Lymphocyte % 19.6 % (19-41); Mean Corp Hgb Conc 32.9 g/dL (32-36); Mean Corpuscular Hgb 29.3 pg (27.0-32.0); Mean Corpuscular Volume 89.2 fL (80-94); Mean Platelet Vol. 9.9 fl (6.2-12.0); Monocyte# 0.94 X10^3/uL; Monocyte% 10.2 % (0-10); NRBC Flagged by Analyzer 0 % (0-5); Neutrophil % 68.1 % (47-70); Platelet Count 221 K/mm3 (150-450); RBC Distribution Width CV 12.7 % (11.6-14.6); RBC Distribution Width SD 41.7 fl (35.1-43.9); Red Blood Count 3.89 M/mm3 (4.6-6.2); White Blood Count 9.3 K/mm3 (4.4-11.0)
[2023-01-08 07:11] LABS: Anion Gap 6 (5-15); BUN 32 mg/dL (7-18); BUN/Creat Ratio 12.6 RATIO (10-20); Calcium,Total 8.5 mg/dL (8.5-10.1); Chloride 107 mmol/L (98-107); Creatinine, Serum 2.53 mg/dL (0.70-1.30); EST Glomerular Filtration Rate 27 mL/min (>60); Est Glom Filt Rate - Afr Amer 32 mL/min (>60); Estimated Creatinine Clearance 27.65 ml/min; Glucose 97 mg/dL (74-106); Potassium 4.6 mmol/L (3.5-5.1); Sodium Level 141 mmol/L (136-145)
[2023-01-08] MEDS: 0.9% Normal Saline 1,000 ML 100 ML IV (08:39)
[2023-01-08 08:41] VITALS: BP 138/90; PULSE 60; RESP 16; TEMP 36.6; O2SAT 99
[2023-01-08] MEDS: amLODIPine 5 MG Tablet PO (08:46)
--- NOTE | 2023-01-08 12:35 | DCINST_ITS ---
Discharge Instructions Diet Discharge Diet: Renal Diet Activity Discharge Activity: - (Return to activity as tolerated) Follow Up Care Test Results: Test results from this visit will be discussed in further detail at your follow- up appointment, if applicable. Discharge Plan Admission Admit Date/Time: 01/06/23 20:18 Primary Reason for Your Visit: Urinary retention Attending Provider: Dior Carey Primary Care Provider: Camille Mata Consulting Providers: Magdi March; Molly Fuentes Instructions Patient Instructions: ED Reyes Catheter, Care, ED Urinary Retention, Male Additional Instructions / Restrictions: DISCHARGE INSTRUCTIONS PLEASE READ *Please take this with you to your next doctors appointment* -You will be discharged with a Reyes catheter and will be imperative that he follow-up with urology upon discharge. Contact information below, please call on Tuesday to obtain an appointment -Would recommend lab work (BMP) to check your kidney function in 2 to 3 days through your primary care physician's office. Please call their office upon discharge to obtain order for lab work. -We will be important that he continue tamsulosin -He has been started on a blood pressure medication, amlodipine, that you will take daily -Please call your primary care provider's office upon discharge to schedule a hospital follow up within 1 week. -For any concerning signs or symptoms please call 911 or proceed to the nearest emergency department Discharge Orders/Prescriptions Prescriptions: New amlodipine 5 mg Tablet 5 mg PO DAILY 30 Days Qty: 30 0RF Continued levothyroxine [Synthroid] 112 mcg tablet 112 mcg PO DAILY tamsulosin 0.4 mg capsule 0.4 mg PO QHS 30 Days Qty: 30 0RF Referrals / Follow Up: Eusebio Starr MD [Med Staff - Active Staff] - Within 1 Week (Please call the urology office on Tuesday to schedule an appointment) Camille Mata, POCKET CUTTER-C [Primary Care Provider] - Within 1 Week Disposition Disposition (needs filled in before D/C Order can be placed): Home, Self Care
--- NOTE | 2023-01-08 12:53 | PCM.DC.SUM ---
Providers Date of Admission: 01/06/23 Date of Discharge: 01/08/23 Primary Care Physician: Camille Mata, SAHRA Consultations 01/06/23 21:55 Consult: Nephrology Routine Consulting Provider: Molly Fuentes Reason for Consult: RUMA on CKD, likely postobstructive EMERGENT Consult: No MD Notified: Yes Date Notified: 01/07/23 Time Notified: 08:00 Method of Notification: Answering Service Reason For Visit: URINARY RETENTION, RUMA Diagnosis Discharge Diagnosis (1) Urinary retention: Status: Acute Code(s): R33.9 - Retention of urine, unspecified Plan #Urinary retention, known history of BPH #RUMA- post obstructive, improving #Hypothyroidism #Elevated BP readings Medications at Discharge Home Medications levothyroxine 112 mcg tablet (Synthroid) 112 mcg PO DAILY hypothyroid 01/06/23 amlodipine 5 mg tablet 5 mg PO DAILY 30 days #30 tabs 01/08/23 tamsulosin 0.4 mg capsule 0.4 mg PO QHS retention 30 days #30 caps 01/08/23 Hospital Course Summary of Care Provided Minutes Spent on Discharge: 35 Hospital Course: BHARGAVI OSMAN is a 72 M with history of BPH and hypothyroidism who presented to the [facility] ED on 01/06/2023 with urinary retention. He was recently found to have elevated kidney function and PSA on an outpatient basis and was undergoing work-up however given the retention and RUMA he was sent to the ED. Baseline creatinine seems to be closer to 1 but was 3.53 on admit and patient found to be retaining urine, Reyes catheter placed and patient admitted and started on IV fluids. Patient began to improve significantly once Reyes in place. Was seen by nephrology who is happy with progress and were okay with discharge with urology follow-up and nephrology referral if kidneys do not continue to improve. Initially urology consulted however they were not available for inpatient consult so plan is for patient to DC with Reyes with close outpatient follow-up with urology. Patient and comfortable with this plan. On day of discharge reports he had a bowel movement and his abdomen is feeling better and he has no acute complaints, discharge instructions as follows: -You will be discharged with a Reyes catheter and will be imperative that he follow-up with urology upon discharge. Contact information below, please call on Tuesday to obtain an appointment -Would recommend lab work (BMP) to check your kidney function in 2 to 3 days through your primary care physician's office. Please call their office upon discharge to obtain order for lab work. -We will be important that he continue tamsulosin -He has been started on a blood pressure medication, amlodipine, that you will take daily -Please call your primary care provider's office upon discharge to schedule a hospital follow up within 1 week. -For any concerning signs or symptoms please call 911 or proceed to the nearest emergency department Physical Exam Narrative General: Alert, oriented, no apparent distress HEENT: Atraumatic, normocephalic Eyes: Anicteric, normal conjunctiva, extraocular movements grossly intact Neck: Supple Respiratory: Clear to auscultation bilaterally, normal respiratory effort Cardiovascular: Regular rate and rhythm GI: Soft, nontender, nondistended Extremities: No edema Musculoskeletal: Moving all extremities Neuro: No overt focal neurological deficits Skin: No rashes appreciated Psych: Cooperative Weight / BMI Weight Weight: 77.8 kg Body Mass Index (BMI) 24.6 ABG / Lab / Microbiology Data 01/08/23 06:38 01/08/23 06:38 Laboratory: Laboratory Results - last 24 hr 01/08/23 06:38: WBC 9.3, RBC 3.89 L, Hgb 11.4 L, Hct 34.7 L, MCV 89.2, MCH 29.3, MCHC 32.9, RDW Std Deviation 41.7, RDW Coeff of Raf 12.7, Plt Count 221, MPV 9.9, Immature Gran % (Auto) 0.400, Neut % (Auto) 68.1, Lymph % (Auto) 19.6, [place] % (Auto) 10.2 H, Eos % (Auto) 1.3, Baso % (Auto) 0.4, Absolute Neuts (auto) 6.3, Absolute Lymphs (auto) 1.81, Nucleated RBC % 0, Sodium 141, Potassium 4.6, Chloride 107, Carbon Dioxide 28.0, Anion Gap 6, BUN 32 H, Creatinine 2.53 H, Estim Creat Clear Calc 27.65, Est GFR (MDRD) Af Amer 32 L, Est GFR (MDRD) Non-Af 27 L, BUN/Creatinine Ratio 12.6, Glucose 97, Calcium 8.5 Microbiology: Microbiology 01/06/23 17:15 Urine, Catheterized Urine Culture - Final Culture exhibits no growth. D/C Instructions Discharge Diet: Renal Diet Meaningful Use Info Meaningful Use Diagnoses (Choose all that apply): None applicable Discharge Plan Admission Admit Date/Time: 01/06/23 20:18 Primary Reason for Your Visit: Urinary retention Attending Provider: Dior Carey Primary Care Provider: Camille Mata Consulting Providers: Magdi March; Molly Fuentes Instructions Patient Instructions: ED Reyes Catheter, Care, ED Urinary Retention, Male Additional Instructions / Restrictions: DISCHARGE INSTRUCTIONS PLEASE READ *Please take this with you to your next doctors appointment* -You will be discharged with a Reyes catheter and will be imperative that he follow-up with urology upon discharge. Contact information below, please call on Tuesday to obtain an appointment -Would recommend lab work (BMP) to check your kidney function in 2 to 3 days through your primary care physician's office. Please call their office upon discharge to obtain order for lab work. -We will be important that he continue tamsulosin -He has been started on a blood pressure medication, amlodipine, that you will take daily -Please call your primary care provider's office upon discharge to schedule a hospital follow up within 1 week. -For any concerning signs or symptoms please call 911 or proceed to the nearest emergency department Discharge Orders/Prescriptions Prescriptions: New amlodipine 5 mg Tablet 5 mg PO DAILY 30 Days Qty: 30 0RF Continued levothyroxine [Synthroid] 112 mcg tablet 112 mcg PO DAILY tamsulosin 0.4 mg capsule 0.4 mg PO QHS 30 Days Qty: 30 0RF Referrals / Follow Up: Eusebio Starr MD [Med Staff - Active Staff] - Within 1 Week (Please call the urology office on Tuesday to schedule an appointment) Camille Mata, CHOIR MEMBER-C [Primary Care Provider] - Within 1 Week Disposition Disposition (needs filled in before D/C Order can be placed): Home, Self Care Charges/Coding Visit Charges Inpatient E&M: 54196 Disch Hosp >30min
== END 2023-01-08 13:10 | disposition home or self-care (01) | DRG 684 ==
LOC: ED 18:36 → MS3 21:45
PROVIDERS: Admitting Provider Hospitalist; Emergency Provider Emergency Medicine; PCP Nurse Practitioner Family; Visit Provider Internal Medicine
DX: N17.9 Acute kidney failure, unspecified (principal); E03.9 Hypothyroidism, unspecified; N40.1 Benign prostatic hyperplasia with lower urinary tract symptoms; R33.8 Other retention of urine; R03.0 Elevated blood-pressure reading, without diagnosis of hypertension; Z79.899 Other long term (current) drug therapy; R31.9 Hematuria, unspecified; N18.9 Chronic kidney disease, unspecified; N32.89 Other specified disorders of bladder
CPT/HCPCS: 36415; 51702; 76770; 80048; 81001; 82570; 83735; 83970; 84100; 84153; 84154; 84156; 84300; 85025; 87086; 96361; 96365; 96372; 97802; 99221; 99284; J7030; A4216; G0378

== ENCOUNTER → 2023-01-19 | Outpatient (CLI) | payer MEDICARE, SELFPAY ==
[2023-01-19 13:02] LABS: Anion Gap 6 (5-15); BUN 28 mg/dL (7-18); BUN/Creat Ratio 15.7 RATIO (10-20); Calcium,Total 9.1 mg/dL (8.5-10.1); Chloride 104 mmol/L (98-107); Creatinine, Serum 1.78 mg/dL (0.70-1.30); EST Glomerular Filtration Rate 40 mL/min (>60); Est Glom Filt Rate - Afr Amer 49 mL/min (>60); Glucose 91 mg/dL (74-106); Potassium 4.6 mmol/L (3.5-5.1); Sodium Level 136 mmol/L (136-145)
== END | disposition home or self-care (01) ==
LOC: BFHLAB 09:46
PROVIDERS: PCP Nurse Practitioner Family; Referring Provider Nurse Practitioner Family; Visit Provider Nurse Practitioner Family
DX: N18.30 Chronic kidney disease, stage 3 unspecified (principal); N28.9 Disorder of kidney and ureter, unspecified
CPT/HCPCS: 36415; 80048

== ENCOUNTER 2023-01-26 04:22 | Emergency (ER) | payer MEDICARE, SELFPAY ==
[2023-01-26 04:22] VITALS: BP 144/78; PULSE 82; RESP 14; TEMP 36.6; O2SAT 99; BMI 25.0
--- NOTE | 2023-01-26 04:35 | EX.ED.GUMALE ---
HPI History of Present Illness Chief Complaint: Complaint Detail of Chief Complaint: Blood in catheter Informant: patient and spouse/S.O. Narrative Narrative: Patient presents with blood in his Reyes catheter. About 3 weeks ago he was undergoing an ultrasound secondary to worsening renal function. He was found to have urinary retention. A Reyes catheter was placed. Patient was admitted to the hospital with evidence of a UTI and renal failure. Once catheter was placed renal function did improve. Patient states he was up this morning at 230 and emptied his Reyes bag and the urine was clear. When he got up a short time ago there was blood noted in the catheter and he noted some pressure in the lower pelvic region. He has had no fever or chills. [facility] Medical History (Updated 01/26/23 @ 05:[address] Vicky Knight MD) Hearing problem of both ears Neuropathy Seasonal allergies Thyroid disease Home Medications levothyroxine 112 mcg tablet (Synthroid) 112 mcg PO DAILY hypothyroid 01/06/23 [History Last Taken 01/06/23] amlodipine 5 mg tablet 5 mg PO DAILY 30 days #30 tabs 01/08/23 [Rx Last Taken Unknown] tamsulosin 0.4 mg capsule 0.4 mg PO QHS retention 30 days #30 caps 01/08/23 [Rx Last Taken Unknown] cephalexin 500 mg capsule 500 mg PO Q12 #14 CAPSULES 01/26/23 [Rx Last Taken Unknown] Allergy/AdvReac Type Severity Reaction Status Date / Time No Known Allergies Allergy Verified 01/26/23 04:24 Family History Father Angina at rest Heart disease Mother Hypertension Thyroid disorder Grandmother Diabetes Social History Smoking Status: Never smoker alcohol intake: never substance use type: does not use additional social history: DOES USE BABY ASPIRIN DOES NOT USE IBUPROFEN ROS ROS ED Constitutional Constitutional ED: Denies chills or fever(s) Eyes Eyes: Denies discharge from eye(s) ENT ENT ED: Denies discharge from eye(s), rhinorrhea or sore throat Cardiovascular Cardiovascular: Denies chest pain Respiratory/Chest Respiratory/Chest: Denies cough or dyspnea Gastrointestinal Gastrointestinal: Reports abdominal pain; Denies nausea or vomiting Genitourinary Genitourinary ED: Reports hematuria Musculoskeletal Musculoskeletal: Denies back pain or extremity pain Integumentary Denies Abrasions or rash Neurologic Neurologic: Denies headache(s) or weakness Psychiatric Psychiatric: Denies anxiety or depression Allergic/Immunologic Allergic/Immunologic ED: Denies lip swelling or urticaria EXAM Physical Exam Const Vital Signs: 01/26/23 04:22 Temperature 97.9 F Temperature Source Oral Pulse Rate 82 Respiratory Rate 14 Blood Pressure 144/78 H Blood Pressure Mean 100 Pulse Ox 99 Oxygen Delivery Method Room Air Positive well nourished and well developed General Appearance ED: well developed HEENT Reports moist mucous membranes Eyes EOMs intact bilaterally Resp normal respiratory effort and clear to auscultation bilaterally Cardio regular rate and regular rhythm GI non-tender and non-distended no CVA tenderness Narrative: Red-tinged urine noted in Reyes catheter bag. Extremity normal to inspection Neuro oriented x3 Sensorium / Orientation: alert Psych mental status grossly normal MDM MDM MDM Narrative Medical decision making narrative: Reyes catheter tubing is exchanged. Bladder will be irrigated and urinalysis sent to evaluate for possible infection. BMP obtained to evaluate renal function. Lab Data Attestation: I reviewed the patient's lab results. Labs: Laboratory Results - last 24 hr 01/26/23 01/26/23 04:44 05:00 Sodium 138 Potassium 4.0 Chloride 107 Carbon Dioxide 25.0 Anion Gap 6 BUN 27 H Creatinine 1.64 H Estim Creat Clear Calc 42.66 Est GFR (MDRD) Af Amer 54 L Est GFR (MDRD) Non-Af 44 L BUN/Creatinine Ratio 16.5 Glucose 104 Calcium 9.1 Urine Color Yellow Urine Clarity Sl. Cloudy Urine pH 6.0 Ur Specific [place] 1.015 Urine Protein 100 H Urine Glucose (UA) Normal Urine Ketones Negative Urine Occult Blood 250 H Urine Nitrite Positive H Urine Bilirubin Negative Urine Urobilinogen Normal Ur Leukocyte Esterase 500 H Urine RBC > 100 SEEN Urine WBC 50-100 SEEN Ur Squamous Epith Cells 0 SEEN Urine Bacteria 1+ Urine Mucus 0 SEEN Treatment and Re-Evaluation Narrative: Catheter tubing was changed by nursing staff. Urinalysis obtained after this reveals positive nitrites with greater than 100 red cells, 50-100 white cells, and 1+ bacteria. Urine has been sent for culture. BMP reveals a creatinine 1.64. This is compared to a creatinine 1.78 last week. Nursing staff gently flushed the catheter and drained without difficulty. At this time clear urine is draining into the catheter. Patient be treated with a course of Keflex. He was advised that if the urine culture indicates this antibiotic will not work for him we will call him and change the antibiotic. He is otherwise to follow-up with Dr. Starr as scheduled. Discharge Plan Triage Chief Complaint: Complaint ED Provider: Vicky Knight Dx/Rx/DC Orders Clinical Impression: UTI (urinary tract infection), Reyes catheter problem Instructions: ED Reyes Catheter, Care, ED Urinary Tract Infections in Men Prescriptions: New cephalexin 500 mg capsule 500 mg PO Q12 Qty: 14 0RF No Action levothyroxine [Synthroid] 112 mcg tablet 112 mcg PO DAILY amlodipine 5 mg Tablet 5 mg PO DAILY 30 Days Qty: 30 0RF tamsulosin 0.4 mg capsule 0.4 mg PO QHS 30 Days Qty: 30 0RF Primary Care Provider: Camille Mata Referrals: Eusebio Starr MD [Med Staff - Active Staff] - Keep Leigh appointment Camille Mata NP-C [Primary Care Provider] - Disposition Disposition: Home, Self Care
[2023-01-26 05:15] LABS: Mucous, Urine 0 SEEN /hpf (<or=2+); Squamous Epithelial Cells - UA 0 SEEN /hpf (0-5)
[2023-01-26 05:20] LABS: Color, Urine Yellow (Yellow); Glucose, Dipstick Normal (Normal); Ketone-Dipstick Negative (Negative); Leukocyte Esterase-Dipstick 500 /ul (Negative); Nitrite-Dipstick Positive (Negative); Occult Blood-Urine 250 /ul (Negative); Protein-Dipstick 100 mg/dl (Negative); Specific Gravity, Urine 1.015 (1.002-1.030); Urine Bilirubin Dipstick Negative (Negative); Urine Clarity Sl. Cloudy (Clear); Urine Urobilinogen Normal (Normal)
[2023-01-26 05:26] LABS: Anion Gap 6 (5-15); BUN 27 mg/dL (7-18); BUN/Creat Ratio 16.5 RATIO (10-20); Calcium,Total 9.1 mg/dL (8.5-10.1); Chloride 107 mmol/L (98-107); Creatinine, Serum 1.64 mg/dL (0.70-1.30); EST Glomerular Filtration Rate 44 mL/min (>60); Est Glom Filt Rate - Afr Amer 54 mL/min (>60); Estimated Creatinine Clearance 42.66 ml/min; Glucose 104 mg/dL (74-106); Sodium Level 138 mmol/L (136-145)
[2023-01-26 05:35] LABS: Bacteria 1+ /hpf (None Seen); Red Blood Cells-Urine > 100 SEEN /hpf (0-5); White Blood Cells 50-100 SEEN /hpf (0-5)
[2023-01-26 05:46] VITALS: BP 144/78; PULSE 82; RESP 14; O2SAT 99
[2023-01-26] MEDS: Cephalexin 250 MG Capsule 500 MG PO (05:51)
== END 2023-01-26 05:56 | disposition home or self-care (01) ==
PROVIDERS: Emergency Provider Emergency Medicine; PCP Nurse Practitioner Family; Visit Provider Emergency Medicine
DX: N39.0 Urinary tract infection, site not specified (principal); T83.83XA Hemorrhage due to genitourinary prosthetic devices, implants and grafts, initial encounter; X58.XXXA Exposure to other specified factors, initial encounter
CPT/HCPCS: 80048; 81001; 87077; 87086; 87088; 87186; 99283

== ENCOUNTER 2023-02-16 10:52 | Observation (INO) | payer MEDICARE, SELFPAY ==
[2023-02-16] VITALS (11 sets, daily range): BP systolic 111–146; BP diastolic 61–89; PULSE 69–82; RESP 15–18; TEMP 36.5–37.1; O2SAT 97–100; BMI 24.0
[2023-02-16] MEDS: Lactated Ringers 1,000 ML 15 ML IV ×2 (09:59→13:27)
--- NOTE | 2023-02-16 10:26 | PCM.HP.STD ---
[facility] - General General Date of Service: 02/16/23 Chief Complaint: BPH with obstruction very large prostate HPI Narrative BHARGAVI OSMAN, is a 72 M who presents for a robotic simple enucleation with simple prostatectomy for BPH with obstruction COUNTS INCLUDE 234 BEDS AT THE [facility] Medical History (Updated 02/03/23 @ 00:01 by Dylan Mcneill) Hearing problem of both ears Loss of hearing Neuropathy Non-smoker Prostate disease Seasonal allergies Thyroid disease Wears glasses Wears hearing aid Home Medications levothyroxine 112 mcg tablet (Synthroid) 112 mcg PO DAILY hypothyroid 01/06/23 [History Last Taken 02/16/23 07:00] tamsulosin 0.4 mg capsule 0.4 mg PO QHS retention 30 days #30 caps 01/08/23 [Rx Last Taken 02/15/23] cyanocobalamin (vitamin B-12) 1,000 mcg tablet (Vitamin B-12) 1,000 mcg PO DAILY 02/02/23 [History Last Taken 02/16/23 07:00] Allergy/AdvReac Type Severity Reaction Status Date / Time No Known Allergies Allergy Verified 02/16/23 09:52 Family History Father Angina at rest Heart disease Mother Hypertension Thyroid disorder Grandmother Diabetes Surgical History (Updated 02/02/23 @ 08:32 by Klaudia Chang) History of hand surgery Social History Smoking Status: Never smoker alcohol intake: never substance use type: does not use additional social history: DOES USE BABY ASPIRIN DOES NOT USE IBUPROFEN ROS Constitutional Constitutional: Denies chills, fever(s) or malaise Eyes Eyes: Denies blurry vision or change in vision ENT HEENT: Reports none Cardiovascular Cardiovascular: Denies chest pain or palpitations Respiratory/Chest Respiratory/Chest: Denies cough or shortness of breath with exertion Gastrointestinal Gastrointestinal: Denies abdominal pain, constipation or diarrhea Musculoskeletal Musculoskeletal: Denies back pain, joint stiffness or joint swelling Integumentary Integumentary: Denies dry skin, jaundice, lesions or rash Neurologic Neurologic: Denies confusion, syncope or weakness Psychiatric Psychiatric: Reports none; Denies anxiety or depression Endocrine Endocrinology: Denies excessive sweating, fatigue or flushing Hematologic/Lymphatic Hematologic/Lymphatic: Denies anemia, easy bleeding or easy bruising Vital Signs Vital Signs Vital Signs: 02/16/23 09:54 02/16/23 09:54 Temperature 98.4 F Temperature Source Temporal Pulse Rate 69 Respiratory Rate 18 Respiratory Pattern Normal Blood Pressure 135/72 H Blood Pressure Mean 93 Blood Pressure Source Monitor Blood Pressure Position Sitting Blood Pressure Location Left Arm Pulse Ox 100 Oxygen Delivery Method Room Air Weight Weight: 76 kg Body Mass Index (BMI) 24.0 Physical Exam Const alert and oriented x3 General Appearance: cooperative HEENT normocephalic, head/scalp atraumatic, EAC's normal and TM's normal bilaterally Eyes PERRL and EOMs intact bilaterally Pupil: sluggish Neck no lymphadenopathy, supple and no JVD General: trachea midline Lymph Lymphatic: no lymphadenopathy noted, lymphedema and lymphadenopathy Resp normal respiratory effort, normal air movement and clear to auscultation bilaterally Cardio regular rate, regular rhythm and peripheral pulses 2+ throughout GI soft to palpation, non-tender and non-distended Extremity normal capillary refill and no clubbing, cyanosis or edema General Extremity: no tenderness to palpation of joints or extremities Skin no rashes or lesions noted General Skin Exam: turgor normal Lesions: no lesions Rashes: no rashes Neuro CN's II-XII intact bilaterally Speech: speech normal Motor Exam: strength 5/5 throughout; Negative for general weakness Psych thought process normal, cooperative and affect normal Appearance: appropriate Results Medical Records Data Attestation: I reviewed the patient's medical records Assessment & Plan Assessment/Plan (1) Urinary retention: PLAN: Plan for robotic simple prostatectomy for BPH and retention of urine
[2023-02-16] MEDS: Cefazolin 2 GM in 0.9% Normal Saline (100mL Bag) 100 ML IV (10:46)
--- NOTE | 2023-02-16 10:55 | DCINST_ITS ---
Discharge Instructions Diet Discharge Diet: No restrictions Activity Discharge Activity: Return to Normal Activity Dressing / Incision Cleanse incision/area with: Soap & Water Catheter: Reyes to leg bag and Reyes to large bag Drain: Pilot [place] Follow Up Care Please Follow Up With: Eusebio Starr MD When: call for appt Test Results: Test results from this visit will be discussed in further detail at your follow- up appointment, if applicable. Discharge Plan Admission Primary Reason for Your Visit: Simple prostatectomy Attending Provider: Eusebio Starr Primary Care Provider: Camille Mata Discharge Orders/Prescriptions Prescriptions: New ciprofloxacin HCl [Cipro] 500 mg tablet 500 mg PO BID Qty: 20 0RF oxycodone 5 mg tablet 5 mg PO Q6H PRN (Reason: pain) 7 Days Qty: 14 0RF Continued levothyroxine [Synthroid] 112 mcg tablet 112 mcg PO DAILY tamsulosin 0.4 mg capsule 0.4 mg PO QHS 30 Days Qty: 30 0RF cyanocobalamin (vitamin B-12) [Vitamin B-12] 1,000 mcg tablet 1,000 mcg PO DAILY Other Ambulatory Orders: 12 Lead EKG (Routine) Timeframe: [id number] Location: None Selected Ordered By: Dr. Wilson Beck Referrals / Follow Up: Eusebio Starr MD [Med Staff - Active Staff] - Camille Mata NP-C [Primary Care Provider] - Disposition Disposition (needs filled in before D/C Order can be placed): Home, Self Care
--- NOTE | 2023-02-16 11:00 | PROST_PTH ---
PATIENT: BHARGAVI OSMAN LOC: [facility] U#:[id number] AGE/SX: 72/M ROOM: AL320 RE02/16/[address]: Dr. Eusebio Starr MD : 1950 BED: 1 DIS: 02/17/2023 SPEC #: [id number] RECD: 02/16/23 14:47 STATUS: ANKIT FERGUSON #: [id number] EVAN: 02/16/23 11:[address]: Eusebio Starr DEPT: SURGICAL PATHOLOGY RECD BY: Maddie Diaz ENTERED: 02/17/23 10:44 SP TYPE: PROSTATE OTHR DR: Camille Mata, COUNTER WAITER-C Tissues: Prostate, NOS Procedures: Surgery Specimen Level V HEADER OPERATION: Lap robotic simple prostatectomy PRE-OP DIAGNOSIS: BPH with obstruction, large prostate TISSUE SUBMITTED: Prostate MICROSCOPIC DIAGNOSIS Prostate, simple prostatectomy: Benign nodular hyperplasia, glandular and stromal types. Chronic prostatitis. AM:babs 02/18/2023 MICROSCOPIC DESCRIPTION Slides are reviewed. GROSS DESCRIPTION Received in fixative is one container labeled with the patient's name and designated prostate. The specimen consists of a simple prostatectomy specimen in multiple pieces weighing 41.6 gm. The largest piece is disrupted and measures 6.5 x 5.0 x 3.0 cm and multiple smaller rodríguez, indurated pieces of tissue are also noted measuring in aggregate 3.5 x 3.5 x 1.0 cm. Sections reveal multinodular cut surfaces without any obviously well-defined mass lesion. School Admissions Representative sections are submitted in ten cassettes as follows: 1-9 - largest piece, 10 - smaller pieces. / BHASKAR:babs 02/17/2023 TC:3 CPT: 69785
[2023-02-16] MEDS: Lubricating Jelly 60 GM Tube 30 GM (11:07)
[2023-02-16] MEDS: Bupivacaine Mpf 0.5% 30 ML VIAL (12:36)
--- NOTE | 2023-02-16 12:39 | PCM.OPRPT ---
Report of Operation Date of Procedure: 02/16/23 Pre-Operative Diagnosis: BPH with obstruction retention of urine Post-Operative Diagnosis: Same Surgery/Procedure Performed:: Laparoscopic robotic assisted simple prostatectomy Description of Surgical Findings:: Patient was taken back to the operating room at the smooth induction of general anesthesia he was placed in dorsolithotomy position. The penis and testicles and abdomen were prepped and draped in usual sterile fashion we placed a 18 Maldivian catheter into the bladder, we then made a small incision above the umbilicus placed a Veress needle into the peritoneal cavity filled the peritoneal cavity with CO2 gas was a pressure was up to 15 mmHg and he had about 4 L of CO2 gas in the abdomen we then placed the camera trocar right left robotic trocars and an 1012 air seal port the robot was docked first thing we did was filled the bladder up with about 200 cc of normal saline made an midline incision in the bladder open up the bladder and then using Mikel needles the edges of the bladder and the wings of the bladder with held open I then opened up the bladder low bit more in the posteriorly and then identified the very large protruding prostate the catheter balloon was deflated but the catheter left in place for guide I then scored all the way around the catheter to the mucosa down to the adenoma we then proceeded with enucleation of the animal adenoma following the adenoma noma plane between the prostate and the edges of the prostate all the way around circumferentially until I got posteriorly then went and got posteriorly and dragged the abdomen anteriorly down the urethral plate this was transected and then we enucleated the adenoma from the prostate and the shell fashion on the left side and then the right side. I then placed the adenoma into an Endo Catch bag Floseal was then prepared we then cauterized the prostate bleeding sites. And then after this I did a reapproximation of the mucosa to the urethra circumferentially running with a 3 oh V-Loc stitch then a new catheter was placed over the 22 Maldivian three-way continuous-flow catheter I then closed the bladder and the first layer was closed with a 2 oh V-Loc stitch and the second layer was closed with a 0 Vicryl stitch after closing the bladder we started irrigation the urine was nice and clear. We then undocked the robot we put the extracted the prostate adenoma through the umbilicus plical port we closed the umbilical port I also tried to close a small defect in the hernia as well by incorporating some of the posterior stitches and they are to close this up and then after that she was closed and all the incisions were closed with subcuticular stitches we left the catheter in place with continuous irrigation patient anesthetic is being reversed we completed a simple prostatectomy blood loss was minimal by 50 cc and currently being extubated from anesthesia. Surgeon: Eusebio Starr Type of Anesthesia: General Drains: 22 Maldivian three-way Admit VTE Documentation VTE Present on Admission: No VTE Mechan Device Prophylaxis: SCD's VTE Pharm Prophylaxis ordered?: No
[2023-02-16] MEDS: Ketorolac 30 MG/ML Syringe 15 MG IV ×2 (13:31→22:33)
[2023-02-16] MEDS: 0.9% Normal Saline (1000mL) 1,000 ML 125 ML IV (18:23)
[2023-02-16] MEDS: Tamsulosin HCl 0.4 MG Capsule PO (22:08)
[2023-02-16] MEDS: Docusate Sodium 100 MG Capsule 200 MG PO (22:08)
[2023-02-16] MEDS: Ciprofloxacin 400 MG/200 ML BAG 200 MG IV (22:32)
[2023-02-17 02:14] VITALS: BP 141/78; PULSE 70; RESP 16; TEMP 36.6; O2SAT 98
[2023-02-17] MEDS: 0.9% Normal Saline (1000mL) 1,000 ML 125 ML IV (03:30)
[2023-02-17] MEDS: Levothyroxine 112 MCG Tablet PO (05:48)
[2023-02-17 06:14] VITALS: BP 138/76; PULSE 71; RESP 16; TEMP 36.9; O2SAT 98
--- NOTE | 2023-02-17 07:19 | PCM.PN.GU ---
Subjective Subjective Status post simple robotic prostatectomy, stop CBI today. Clamp three-way tubing, he can go home with a catheter today and follow-up in my office in 10 days for catheter removal. Objective Data Objective Data Vital Signs: Vital Signs Temp Pulse Resp BP Pulse Ox O2 Del Method O2 Flow Rate 98.4 F 71 16 138/76 H 98 Room Air 2 02/17/23 06:14 02/17/23 06:14 02/17/23 06:14 02/17/23 06:14 02/17/23 06:14 02/17/23 06:14 02/16/23 18:40 Oxygen Flow Rate (L/min) 2 Oxygen Delivery Method Room Air Weight: 76 kg Body Mass Index (BMI) 24.0 Intake & Output: Intake and Output for Last 24 Hours 02/15/23 02/16/23 02/17/23 23:59 23:59 23:59 Intake Total 2310 / 2310 1200 / 1200 Output Total 19754 / 36303 4500 / 4500 Balance -69046 / -97506 -3300 / -3300
[2023-02-17 08:15] VITALS: BP 126/68; PULSE 66; RESP 14; TEMP 36.8; O2SAT 98
[2023-02-17 08:37] VITALS: BP 131/65; PULSE 85; RESP 16; TEMP 36.9; O2SAT 97
[2023-02-17] MEDS: Docusate Sodium 100 MG Capsule 200 MG PO (09:10)
--- NOTE | 2023-02-17 10:08 | PHA.DC.MC.R ---
Pharmacy [facility] has performed discharge medication reconciliation and counseling for this patient. The patient was counseled on the following discharge medications and changes in medications for homegoing were reviewed. 1. CIPRO 2. OXYCODONE The Reason for Use, instructions for use, and potential side effects were reviewed for all new medications. The patient's questions regarding all of their medications were answered. The patient was able to verbally demonstrate an understanding of their discharge medications. The patient's discharge medication list was reviewed for discrepancies and discrepancies were resolved. Medications at Discharge Home Medications levothyroxine 112 mcg tablet (Synthroid) 112 mcg PO DAILY hypothyroid 01/06/23 tamsulosin 0.4 mg capsule 0.4 mg PO QHS retention 30 days #30 caps 01/08/23 cyanocobalamin (vitamin B-12) 1,000 mcg tablet (Vitamin B-12) 1,000 mcg PO DAILY 02/02/23 ciprofloxacin HCl 500 mg tablet (Cipro) 500 mg PO BID #20 tabs 02/16/23 oxycodone 5 mg tablet 5 mg PO Q6H PRN pain 7 days #14 tabs 02/16/23
--- NOTE | 2023-02-17 10:43 | CASEMGMT ---
MARCO ANTONIO CM into pt room, pt sitting up in chair. Pt denies any homegoing needs, pt states he has had a catheter for some time and is comfortable caring for it at home.
== END 2023-02-17 10:45 | disposition home or self-care (01) ==
LOC: SDC 17:30 → MS3 17:30
PROVIDERS: Admitting Provider Urology; PCP Nurse Practitioner Family; Referring Provider Urology; Visit Provider Urology
PROC: 0VT04ZZ Resection of Prostate, Percutaneous Endoscopic Approach (ICD-10-PCS; CPT 55867; principal; 2023-02-16 10:40)
DX: N40.1 Benign prostatic hyperplasia with lower urinary tract symptoms (principal); R33.8 Other retention of urine; E07.9 Disorder of thyroid, unspecified; Z79.890 Hormone replacement therapy; N13.8 Other obstructive and reflux uropathy; R35.1 Nocturia
CPT/HCPCS: 55867; 00840; 88307; 88309; 93005; 96361; 96365; 96366; 96375; 99221; J7030; J7120; G0378; J0744; J2405

== ENCOUNTER → 2023-04-11 | Outpatient (CLI) | payer MEDICARE, SELFPAY ==
[2023-04-11 11:33] LABS: Anion Gap 4 (5-15); BUN 20 mg/dL (7-18); BUN/Creat Ratio 14.8 RATIO (10-20); Calcium,Total 9.5 mg/dL (8.5-10.1); Chloride 105 mmol/L (98-107); Creatinine, Serum 1.35 mg/dL (0.70-1.30); EST Glomerular Filtration Rate 55 mL/min (>60); Est Glom Filt Rate - Afr Amer 67 mL/min (>60); Glucose 103 mg/dL (74-106); Potassium 4.5 mmol/L (3.5-5.1); Sodium Level 137 mmol/L (136-145)
== END | disposition home or self-care (01) ==
LOC: LAB 10:23
PROVIDERS: PCP Nurse Practitioner Family; Referring Provider Nurse Practitioner; Visit Provider Nurse Practitioner
DX: R94.4 Abnormal results of kidney function studies (principal)
CPT/HCPCS: 36415; 80048

== ENCOUNTER → 2023-04-14 | Outpatient (CLI) | payer MEDICARE, SELFPAY ==
[2023-04-14 13:07] LABS: PSA,Total- Diagnostic 1.31 ng/mL (0.0-4.0)
== END | disposition home or self-care (01) ==
PROVIDERS: PCP Nurse Practitioner Family; Referring Provider Urology; Visit Provider Urology
DX: N40.1 Benign prostatic hyperplasia with lower urinary tract symptoms (principal)
CPT/HCPCS: 36415; 84153

== ENCOUNTER → 2024-01-03 | Outpatient (CLI) | payer MEDICARE, SELFPAY ==
[2024-01-03 12:39] LABS: Absolute Lymphocyte Count 2.26 X10^3/uL (0.83-4.51); Absolute Neutrophil Count 5.4 X10^3/uL (2.0-7.7); Basophil# 0.07 X10^3/uL; Basophil% 0.8 % (0-1); Eosinophil# 0.07 X10^3/uL; Eosinophils% 0.8 % (0-5); Hemoglobin 14.2 g/dL (13.0-16.5); Lymphocyte # 2.26 X10^3/ul (0.83-4.51); Lymphocyte % 26.7 % (19-41); Mean Corp Hgb Conc 32.3 g/dL (32-36); Mean Corpuscular Hgb 28.7 pg (27.0-32.0); Mean Corpuscular Volume 88.9 fL (80-94); Mean Platelet Vol. 10.3 fl (6.2-12.0); Monocyte# 0.66 X10^3/uL; Monocyte% 7.8 % (0-10); NRBC Flagged by Analyzer 0 % (0-5); Neutrophil # 5.37 X10^3/uL (2.7-7.7); Neutrophil % 63.7 % (47-70); POSITIVE MORPHOLOGY YES; Platelet Count 254 K/mm3 (150-450); RBC Distribution Width CV 13.2 % (11.6-14.6); RBC Distribution Width SD 42.9 fl (35.1-43.9); Red Blood Count 4.95 M/mm3 (4.6-6.2); White Blood Count 8.5 K/mm3 (4.4-11.0)
[2024-01-03 12:47] LABS: AST(SGOT) 26 U/L (15-37); Alanine Aminotransfer ALT/SGPT 25 U/L (16-61); Albumin, Serum 3.9 g/dL (3.2-5.0); Alkaline Phosphatase 81 U/L (45-117); Anion Gap 5 (5-15); BUN 18 mg/dL (7-18); BUN/Creat Ratio 15.1 RATIO (10-20); Calcium,Total 9.6 mg/dL (8.5-10.1); Chloride 104 mmol/L (98-107); Cholesterol 201 mg/dL (200); Creatinine, Serum 1.19 mg/dL (0.70-1.30); EST Glomerular Filtration Rate 64 mL/min (>60); Est Glom Filt Rate - Afr Amer 77 mL/min (>60); Globulin 3.8 g/dL (2.2-4.2); Glucose 94 mg/dL (74-106); High Density Lipoprotein 55 mg/dL; PSA,Total - Annual Screen 1.57 ng/mL (0.00-4.00); Potassium 4.7 mmol/L (3.5-5.1); Protein, Total 7.7 g/dL (6.4-8.2); Sodium Level 137 mmol/L (136-145); Triglycerides 71 mg/dL; Very Low Density Lipoprotein 14 mg/dL (5-40)
[2024-01-03 13:15] LABS: Differential Indicated SCAN CRITERIA MET
[2024-01-03 13:45] LABS: Atypical Lymphocyte 1+ %
== END | disposition home or self-care (01) ==
LOC: MTLAB 09:02
PROVIDERS: PCP Nurse Practitioner Family; Referring Provider Nurse Practitioner Family; Visit Provider Nurse Practitioner Family
DX: E03.9 Hypothyroidism, unspecified (principal); E78.5 Hyperlipidemia, unspecified; I10 Essential (primary) hypertension; Z12.5 Encounter for screening for malignant neoplasm of prostate
CPT/HCPCS: 36415; 80053; 80061; 84153; 84439; 84443; 85025; G0103

== ENCOUNTER → 2025-01-04 | Outpatient (CLI) | payer MEDICARE, SELFPAY ==
[2025-01-04 10:13] LABS: Hematocrit 42.7 % (40-54); Hemoglobin 14.3 g/dL (13.0-16.5); Immature Granulocytes Count 0.010 X10^3/uL (0.0-0.0); Mean Corp Hgb Conc 33.5 g/dL (32-36); Mean Corpuscular Volume 88.8 fL (80-94); Mean Platelet Vol. 10.3 fl (6.2-12.0); NRBC Flagged by Analyzer 0 % (0-5); Platelet Count 239 K/mm3 (150-450); RBC Distribution Width CV 12.7 % (11.6-14.6); RBC Distribution Width SD 41.7 fl (35.1-43.9); Red Blood Count 4.81 M/mm3 (4.6-6.2); White Blood Count 7.8 K/mm3 (4.4-11.0)
[2025-01-04 10:50] LABS: AST(SGOT) 22 U/L (<=37); Alanine Aminotransfer ALT/SGPT 14 U/L (<=46); Albumin, Serum 4.3 g/dL (3.4-4.8); Alkaline Phosphatase 70 U/L (40-129); Anion Gap 10 (5-15); BUN 18 mg/dL (4-19); BUN/Creat Ratio 15.2 RATIO (10-20); Calcium,Total 9.7 mg/dL (7.6-11.0); Carbon Dioxide 25.1 mmol/L (21.0-32.0); Chloride 103 mmol/L (98-108); Cholesterol 179 mg/dL (<=200); Globulin 3.0 g/dL (2.2-4.2); Glucose 97 mg/dL (70-99); Low Density Lipoprotein Calc. 110 mg/dL; PSA,Total - Annual Screen 1.25 ng/mL (0.02-4.00); Potassium 4.9 mmol/L (3.3-5.1); Triglycerides 66 mg/dL; Very Low Density Lipoprotein 13 mg/dL (5-40); cholesterol:hdl ratio screen 3.19
== END | disposition home or self-care (01) ==
LOC: MTLAB 08:42
PROVIDERS: PCP Nurse Practitioner Family; Referring Provider Nurse Practitioner Family; Visit Provider Nurse Practitioner Family
DX: E03.9 Hypothyroidism, unspecified (principal); E78.5 Hyperlipidemia, unspecified; I10 Essential (primary) hypertension; Z12.5 Encounter for screening for malignant neoplasm of prostate
CPT/HCPCS: 36415; 80053; 80061; 84153; 84439; 84443; 85025; G0103